=== PATIENT | female | born 1970 | race African-American/Black ===

== ENCOUNTER 2021-01-04 10:22 | Emergency (ER) | payer BC, SELFPAY ==
[2021-01-04] VITALS (17 sets, daily range): BP systolic 97–140; BP diastolic 59–79; PULSE 77–100; RESP 10–19; TEMP 36.1–36.8; O2SAT 98–100
--- NOTE | ~2021-01-04 | CT_ITS ---
EXAMINATION: CT abd pelvis lumbar wo con EXAM DATE: 01/04/2021 11:30 INDICATION: Right sided abd/pelvic/hip pain TECHNIQUE: Spiral CT of the abdomen and pelvis and lumbar spine was performed without contrast. Axi al, coronal and sagittal images of the abdomen and pelvis were reviewed. Axial, coronal and sagittal images of the lumbar spine were reviewed. The dose-length product (DLP) for this examination was 79 4.63 mGy-cm. The exposure was tailored according to patient size (auto mA exposure control), and ite rative reconstruction (ASIR) was used as additional dose reduction technique. There is no prior stud y for comparison. FINDINGS: The liver, spleen, adrenal glands and pancreas are unremarkable. Gallbladder is unremarkab le. No biliary obstruction. There is no nephrolithiasis or hydronephrosis. The uterus is not iden tified and has likely been surgically resected. The bladder is unremarkable. There is no retroperit claudio or pelvic lymphadenopathy. Probable identification of short stubby appendix, or its surgical remnant on images 107-110, does not appear obstructed. The stomach and small bowel are unremarkable. There is moderate amount of colon ic stool. No free intraperitoneal gas. The heart is normal in size. There are no pericardial or pleural effusions. The lung bases are unremarkable. There is no evidence of acute lumbar fracture. There is no disc space widening or traumatic vertebra l body subluxation suspected. Paraspinal soft tissue is unremarkable. There are mild lumbar disc bu lges, is mild to moderate lower lumbar facet arthropathy. Mild bilateral neural foraminal stenosis at L3-4 and L4-5. Central canal appears patent. No endplate erosive change. Bone island in the left aisha e of the sacrum. Hip joints are symmetric and unremarkable. IMPRESSION: 1. No acute findings. 2. Moderate colonic stool. 3. Mild lumbar spondylosis. Reviewed, dictated and finalized at location B.
[2021-01-04 10:53] LABS: Basophils Percent Auto 0.4 % (0.2-1.2); Eosinophils Absolute Auto 0.2 K/mm3 (0-0.3); Eosinophils Percent Auto 2.1 % (0-4.4); Hematocrit 41.2 % (37.0-47.0); Hemoglobin 12.9 g/dL (12.0-15.0); Immature Granulocyte Absolute 0.02 K/mm3 (0.00-0.031); Immature Granulocyte Percent A 0.3 % (0-0.5); Lymphocytes Absolute Auto 2.17 K/mm3 (0.9-3.2); Lymphocytes Percent Auto 30.6 % (18.3-44.2); Mean Corpuscular HGB Conc 31.3 g/dl (32-36); Mean Corpuscular Hemoglobin 27.4 pg (26-34); Mean Corpuscular Volume 87.5 fl (80-100); Mean Platelet Volume 9.9 fl (7.4-10.4); Monocytes Absolute Auto 0.5 K/mm3 (0.1-0.6); Monocytes Percent Auto 6.9 % (2.6-8.5); Neutrophils Absolute Auto 4.2 K/mm3 (1.3-6.7); Neutrophils Percent Auto 59.7 % (45.5-73.1); Platelet Count Result 231 k/mm3 (150-375); Red Blood Count 4.71 M/mm3 (4.2-5.4); Red Cell Distribution Width 14.7 % (11.5-14.5); White Blood Count 7.1 K/mm3 (4.5-10.0)
[2021-01-04 11:08] LABS: Alanine Aminotransferase 22 U/L (4-35); Albumin Level 4.7 g/dL (3.5-5.1); Alkaline Phosphatase 71 U/L (38-126); Anion Gap 10 mmol/L (8-16); Aspartate Amino Transferase 23 U/L (14-36); Bilirubin,Total 0.3 mg/dL (0.2-1.3); Blood Urea Nitrogen 14 mg/dL (7-17); Calcium 9.6 mg/dL (8.4-10.2); Carbon Dioxide 25 mmol/L (22-30); Chloride 106 mmol/L (98-107); Estimated CRCL calculation 76 ml/min; Estimated Glomerular Filt Rate > 60; Glucose 100 mg/dL (65-110); Lipase 293 U/L (23-300); Potassium 3.9 mmol/L (3.4-5.0); Sodium 141 mmol/L (137-145)
--- NOTE | 2021-01-04 11:10 | ED.ABDPAIN ---
HPI - Abdominal Pain General Chief Complaint: Abdominal Pain Stated Complaint: ? Kidney Stone Time Seen by Provider: 01/04/21 10:52 Source: patient Mode of arrival: ambulatory Limitations: no limitations History of Present Illness HPI narrative: This is a 50-year-old female that presents to the emergency department for right-sided abdominal/hip pain present over the last couple of days. No known injury or trauma. Pain is a constant dull ache. With movement is more sharp. She was concerned she may have a kidney stone which prompted her to be seen. Denies fever, vomiting, dysuria, hematuria, numbness or weakness. Related Data Allergies Allergy/AdvReac Type Severity Reaction Status Date / Time Penicillins Allergy Unknown Hives Verified 01/04/21 10:49 phenytoin Allergy Unknown Hives Verified 01/04/21 14:05 Sulfa (Sulfonamide Allergy Unknown HIVES Verified 01/04/21 10:49 Antibiotics) Review of Systems Review of Systems: CONSTITUTIONAL: Denies fever GASTROINTESTINAL: Reports abdominal pain, nausea. Denies vomiting, or diarrhea. GENITOURINARY: Denies dysuria or hematuria. SKIN: Denies rash MUSCULOSKELETAL: Reports joint pain, and myalgia. NEUROLOGIC: Denies numbness, or weakness. All systems reviewed & are unremarkable except as noted in HPI and below PMFSH Past Medical History Medical History (Updated 01/04/21 @ 14:51 by Renita Su PA-C) History of migraine Social History Social History (Updated 01/04/21 @ 11:12 by Renita Su PA-C) Substance use: never Exam Narrative: GENERAL: Well-appearing, well-nourished, and in no acute distress. HEAD: Normocephalic, atraumatic. EYES: EOMI. CHEST: Clear to auscultation. No respiratory distress. No wheezes rales or rhonchi HEART: Regular rate and rhythm. No murmur heard. Normal peripheral pulses. ABDOMEN: Soft, nondistended, normal active bowel sounds. Mild tenderness palpation of the right lower quadrant, without guarding. No CVA tenderness EXTREMITIES: Normal range of motion. Pain with active range of motion in the right hip. No edema. Strength equal in bilateral lower extremities (5/5) SKIN: Warm, dry, no rash. NEURO: No focal deficits. Alert and oriented x3. PSYCH: Normal mood and affect Course Vital Signs Vital signs: Vital Signs Temperature 97.0 F L 01/04/21 10:33 Pulse Rate 100 01/04/21 10:33 Respiratory Rate 16 01/04/21 10:33 Blood Pressure 140/67 01/04/21 10:33 Pulse Oximetry 99 01/04/21 10:33 Temperature 98.2 F 01/04/21 10:48 Pulse Rate 79 01/04/21 13:45 Respiratory Rate 13 01/04/21 13:45 Blood Pressure 105/68 01/04/21 13:45 Pulse Oximetry 100 01/04/21 13:45 MDM - Abdominal Pain MDM Narrative Medical decision making narrative: Patient presents to the emergency department for right-sided abdominal/hip pain radiating down the leg. Her vitals are stable. She is neurologically intact. CBC metabolic panel without concerning findings. Lipase is normal. UA without evidence of infection. CT scan abdomen pelvis is without acute findings. CT scan of the lumbar spine shows mild lumbar spondylosis. Patient was updated on case findings. She is stable and felt appropriate for further outpatient evaluation. She was given warnings to return to the ER Lab Data Attestation: I reviewed the patient's lab results. Result diagrams: 01/04/21 10:47 01/04/21 10:47 Labs: Lab Results 01/04/21 01/04/21 01/04/21 Range/Units 10:47 10:47 10:58 WBC 7.1 (4.5-10.0) K/mm3 RBC 4.71 (4.2-5.4) M/mm3 Hgb 12.9 (12.0-15.0) g/dL Hct 41.2 (37.0-47.0) % MCV 87.5 (80-100) fl MCH 27.4 (26-34) pg MCHC 31.3 L (32-36) g/dl RDW 14.7 H (11.5-14.5) % Plt Count 231 (150-375) k/mm3 MPV 9.9 (7.4-10.4) fl Immature Gran % (Auto) 0.3 (0-0.5) % Neut % (Auto) 59.7 (45.5-73.1) % Lymph % (Auto) 30.6 (18.3-44.2) % [place] % (Auto) 6.9 (2.6-8.5) %
[2021-01-04 11:23] LABS: Add Urine Microscopic? NO; Appearance Urine Clear (Clear); Bilirubin Urine Negative (Negative); Blood Urine Negative (Negative); Color Urine Colorless (Yellow); Glucose Urine UA Negative (Negative); Ketones Urine Negative (Negative); Leukocyte Esterase Ur Negative LEU/UL (Negative); Nitrate Urine Negative (Negative); Protein Urine Negative (Negative); Specific Grav Ur 1.005 (1.001-1.035); Urobilinogen Urine Negative mg/dL (<2.0)
[2021-01-04] MEDS: ONDANSETRON INJ 4 MG/2 ML VIAL IV PUSH (11:23)
[2021-01-04] MEDS: MORPHINE SULFATE (*CRX) 4 MG/ML INJ IV PUSH (11:23)
--- NOTE | 2021-01-04 13:55 | PC.NURSE ---
Continues to c/o pain in right upper abd, Yenifer Su PA-C notified and orders as noted.
[2021-01-04] MEDS: KETOROLAC 30 MG/ML VIAL (*BKC) IV PUSH (14:01)
== END 2021-01-04 15:15 | disposition home or self-care (01) ==
PROVIDERS: Emergency Provider Emergency Medicine
DX: M54.16 Radiculopathy, lumbar region (principal); Z86.69 Personal history of other diseases of the nervous system and sense organs
CPT/HCPCS: 36415; 72131; 74176; 80053; 81003; 83690; 85025; 96365; 96375; 99284; J0131; J1885; J2270; J2405

== ENCOUNTER 2021-01-19 15:49 | Inpatient (IN) | payer BC, SELFPAY ==
--- NOTE | ~2021-01-19 | XR_ITS ---
EXAMINATION: XR abdomen NG/feed tube rechec EXAM DATE: 01/24/2021 15:11 INDICATION: NG position, postop ileus. TECHNIQUE: Frontal projection(s) of the abdomen for interpretation. Comparison is made to prior exami nation from 01/24/2021. FINDINGS: Feeding tube tip and side-port project over expected location of stomach. There are laparo raisa ilir. There is left basilar airspace disease. Moderate amount of colonic stool and bowel gas. IMPRESSION: 1. Feeding tube in position. 2. Moderately distended bowel. 3. Left basilar atelectasis or pneumonia. Reviewed, dictated and finalized at location A.
--- NOTE | ~2021-01-19 | XR_ITS ---
XR abdomen/kub 1V DATE: 01/25/2021 05:40 INDICATION: NG tube position check. Postoperative ileus. TECHNIQUE: Portable supine AP view on 01/25/2021 at 0528 hours COMPARISON: 01/24/2021 portable KUB FINDINGS: An NG tube is present in the distal stomach. [place] overlie the right midabdomen. There is a prominent amount of fecal material in the ascending colon and gaseous distention of multip le segments of the small and large bowel. IMPRESSION: NG tube in distal stomach Reviewed, dictated and finalized at Location A. Reviewed, dictated and finalized at location A. IMPRESSION: NG tube in distal stomach
--- NOTE | ~2021-01-19 | XR_ITS ---
EXAMINATION: XR abdomen NG/feed tube insert INDICATION: Nasogastric tube insertion TECHNIQUE: Portable AP KUB-NG at 1923 hours COMPARISON: CT from today FINDINGS: A nasogastric tube has been inserted which ends in the stomach. No dilated small bowel loop s are not well demonstrated. IMPRESSION: 1. Nasogastric tube in the stomach. Reviewed, dictated and finalized at location A.
--- NOTE | ~2021-01-19 | XR_ITS ---
EXAMINATION: XR abdomen/kub 1V DATE: 01/21/2021 05:55 INDICATION: Small bowel obstruction TECHNIQUE: A supine view of the abdomen was obtained. COMPARISON: 01/19/2021 FINDINGS: Nasogastric tube tip in proximal side port in the body of the stomach. Large amount of stool in the p roximal colon. Small amount of gas scattered throughout a few nondilated loops of small bowel. A coup le phleboliths in the left hemipelvis. Chronic appearing erosions with corticated margins at both aisha es of the pubic symphysis IMPRESSION: 1. Nasogastric tube in the stomach. 2. Large amount of stool in the proximal colon. No dilated loops of bowel to suggest obstruction. Reviewed, dictated and finalized at location A. IMPRESSION: 1. Nasogastric tube in the stomach. 2. Large amount of stool in the proximal colon. No dilated loops of bowel to castanon ggest obstruction.
--- NOTE | ~2021-01-19 | XR_ITS ---
EXAMINATION: XR chest PICC line EXAM DATE: 01/24/2021 20:29 INDICATION: Right arm PICC line placement. TECHNIQUE: Portable AP frontal chest x-ray was obtained. Comparison is made to prior examination from 01/23/2021. FINDINGS: There is a right-sided PICC line with tip projecting over the cavoatrial junction. There i s a nasogastric tube seen with tip collimated off the study, but below the left hemidiaphragm. Ther e is patchy bibasilar airspace disease consistent with pneumonia and atelectasis. Small left pleural effusion. No pneumothorax. Cardiomediastinal silhouette is normal. There are no osseous abnormalities identified. IMPRESSION: 1. PICC line, NG tube in position. 2. Multifocal bibasilar pneumonia and atelectasis Reviewed, dictated and finalized at location A.
--- NOTE | ~2021-01-19 | CT_ITS ---
EXAMINATION: CT abdomen pelvis w con EXAM DATE: 01/19/2021 17:12 INDICATION: Right-sided abdominal pain. TECHNIQUE: Spiral CT of the abdomen and pelvis was performed following intravenous injection of 100 m L Omnipaque 350. Axial, coronal and sagittal images of the abdomen and pelvis were reviewed. The do se-length product (DLP) for this examination was 645.53 mGy-cm. The exposure was tailored according to patient size (auto mA exposure control), and iterative reconstruction (ASIR) was used as additiona l dose reduction technique. Comparison is made to prior examination from 01/04/2021. FINDINGS: The liver, spleen, adrenal glands and pancreas are unremarkable. Gallbladder is unremarka ble. No biliary obstruction. Portal and splenic veins are patent. Kidneys enhance symmetrically. There is no hydronephrosis. The uterus is not identified and has likely been surgically resected. The bladder is unremarkable. There is no retroperitoneal or pelvic lymphadenopathy. Minimal aortic arteriosclerosis. Interval development of mildly dilated ileal loop, and mildly dilated loops of jejunum with undistend ed appearing mid small bowel between them. A portion of the transverse colon appears to be tented tow barber the left lower quadrant region of inflammation, indicated on axial image 105, coronal images 53 t hrough 57. There has been interval development of small amount of left lower quadrant mesenteric, ind icated on axial images 128 through 133. These findings, including the transverse colonic tenting have developed compared to previous examination. Could indicate development of some type of internal irina ia with partial obstruction, could indicate partial small bowel obstruction from other etiology. Ente ritis could explain the small bowel findings. No high-grade or complete obstruction is suspected at t his time. Interval development of mildly dilated segments of small bowel up to 3 cm, There are no findings to s uggest appendicitis. No free intraperitoneal gas. The heart is normal in size. There are no gabrielle cardial or pleural effusions. The lung bases are unremarkable. Bone island in the left side of the sacrum. IMPRESSION: Interval development of mildly dilated jejunum and ileum with normal calibered mid small bowel, and development of some mesenteric tenting and inflammation. Differential diagnosis includes i nternal hernia with partial small bowel obstruction, partial small bowel obstruction from adhesion, e nteritis. Reviewed, dictated and finalized at location A. IMPRESSION: Interval development of mildly dilated jejunum and ileum with josé luis l calibered mid small bowel, and development of some mesenteric tenting and inf lammation. Differential diagnosis includes internal hernia with partial small b owel obstruction, partial small bowel obstruction from adhesion, enteritis.
--- NOTE | ~2021-01-19 | US_ITS ---
US right upper quadrant DATE: 01/29/2021 09:55 INDICATION: Elevated liver enzymes TECHNIQUE: Real-time imaging of liver, pancreas, gallbladder COMPARISON: 01/19/2021 CT abdomen pelvis FINDINGS: No hepatic space-occupying mass lesion is evident. Normal hepatopedal portal venous flow di rection. No gallstones or gallbladder wall thickening are evident. Negative sonographic Li's sign. The common bile duct measures 4.8 mm, normal. No pancreatic mass lesion is evident. IMPRESSION: Negative examination Reviewed, dictated and finalized at Location A. Reviewed, dictated and finalized at location A. IMPRESSION: Negative examination
--- NOTE | ~2021-01-19 | XR_ITS ---
EXAMINATION: XR abdomen/kub 1V DATE: 01/24/2021 14:27 INDICATION: Nasogastric tube placement. TECHNIQUE: A supine view of the abdomen on 2 radiographs was obtained. COMPARISON: CT abdomen and pelvis 01/19/2021 FINDINGS: There are multiple dilated loops of small bowel. There is stool in the proximal colon. The nasogastric tube tip is in the stomach. Skin ilir are noted. IMPRESSION: 1. Dilated small bowel, consistent with adynamic ileus. 2. Nasogastric tube tip in the stomach. Reviewed, dictated and finalized at location A.
--- NOTE | ~2021-01-19 | XR_ITS ---
XR chest 2V 01/23/2021 11:27 Indication: Fever and dyspnea Procedure: PA and lateral views of the chest Comparison: No prior studies for comparison. Findings: Bibasilar airspace disease. Small left pleural effusion. NG tube in the stomach. Heart size normal. No edema or pneumothorax. Impression: 1: Bibasilar airspace disease may represent pneumonia and/or atelectasis. Reviewed, dictated and finalized at location A. Impression: 1: Bibasilar airspace disease may represent pneumonia and/or atelectasis.
--- NOTE | ~2021-01-19 | XR_ITS ---
EXAMINATION: XR sm bowel follow through WS EXAM DATE: 01/21/2021 16:01 INDICATION: f/u sbo--water soluble contrast only. TECHNIQUE: [employer] Service Supervisor radiograph was acquired. Omnipaque/water soluble solution administered for small payam wel exam performed by radiologist Alexandro Lowe M.D.. Contrast was injected through feeding tube in amarilys ce on patient arrival. Pulsed dose reduction fluoroscopy was used with fluoroscopic time of 0.0 minut es. A total of 8 images obtained for the exam. FINDINGS: Cool[employer] Service Supervisor image demonstrates feeding tube in position. Images obtained during [address] some opacification of moderately dilated jejunal loops, but most of contrast remaining within sto mach. Patient also became nauseated, vomiting during the examination. IMPRESSION: Small bowel obstruction. Reviewed, dictated and finalized at location A. IMPRESSION: Small bowel obstruction.
--- NOTE | ~2021-01-19 | XR_ITS ---
XR sm bowel follow through WS DATE: 01/27/2021 13:02 INDICATION: Recent surgery for small bowel obstruction TECHNIQUE: Liner Installer radiograph and subsequent radiographs after administration of water-soluble contrast material through the existing nasogastric tube COMPARISON: 01/25/2021 KUB 01/21/2021 small bowel follow-through FINDINGS: A nasogastric tube is present in the distal body of the stomach on the lotus notes administrator radiograph. Sk in ilir overlie the mid to lower abdomen. There is a prominent amount of fecal material in the colon. There is normal caliber of the small bowel. The mucosal folds of the small bowel are of normal thickn ess. No stricture, mucosal fold thickening, intraluminal filling defect or obstruction of the small b owel is noted. Contrast material is noted are the hepatic flexure and proximal transverse colon at 3 hours. IMPRESSION: No evidence of small bowel obstruction Reviewed, dictated and finalized at [facility] Reviewed, dictated and finalized at [facility].
[2021-01-19 15:52] VITALS: BP 131/76; PULSE 92; RESP 17; TEMP 36.2; O2SAT 100
--- NOTE | 2021-01-19 16:15 | PC.NURSE ---
pt unable to provide ua specimen at this time
[2021-01-19 16:24] LABS: Basophils Percent Auto 0.2 % (0.2-1.2); Eosinophils Absolute Auto 0.1 K/mm3 (0-0.3); Eosinophils Percent Auto 0.5 % (0-4.4); Hematocrit 41.5 % (37.0-47.0); Hemoglobin 13.2 g/dL (12.0-15.0); Immature Granulocyte Absolute 0.04 K/mm3 (0.00-0.031); Immature Granulocyte Percent A 0.4 % (0-0.5); Lymphocytes Absolute Auto 0.95 K/mm3 (0.9-3.2); Mean Corpuscular HGB Conc 31.8 g/dl (32-36); Mean Corpuscular Hemoglobin 27.6 pg (26-34); Mean Corpuscular Volume 86.8 fl (80-100); Monocytes Absolute Auto 0.3 K/mm3 (0.1-0.6); Monocytes Percent Auto 3.6 % (2.6-8.5); Neutrophils Absolute Auto 8.1 K/mm3 (1.3-6.7); Neutrophils Percent Auto 85.3 % (45.5-73.1); Platelet Count Result 256 k/mm3 (150-375); Red Blood Count 4.78 M/mm3 (4.2-5.4); Red Cell Distribution Width 13.4 % (11.5-14.5); White Blood Count 9.5 K/mm3 (4.5-10.0)
[2021-01-19 16:43] LABS: Alanine Aminotransferase 20 U/L (4-35); Albumin Level 5.2 g/dL (3.5-5.1); Alkaline Phosphatase 91 U/L (38-126); Anion Gap 13 mmol/L (8-16); Aspartate Amino Transferase 29 U/L (14-36); Bilirubin,Total 0.4 mg/dL (0.2-1.3); Blood Urea Nitrogen 13 mg/dL (7-17); Calcium 10.1 mg/dL (8.4-10.2); Carbon Dioxide 27 mmol/L (22-30); Chloride 102 mmol/L (98-107); Estimated CRCL calculation 84 ml/min; Estimated Glomerular Filt Rate > 60; Glucose 108 mg/dL (65-110); Lipase 88 U/L (23-300); Potassium 3.4 mmol/L (3.4-5.0); Sodium 142 mmol/L (137-145)
[2021-01-19] MEDS: SODIUM CHLORIDE 0.9% IV 1,000 ML 999 ML IV CONT ×2 (16:51→18:35)
[2021-01-19 17:52] LABS: Add Urine Microscopic? YES; Amorphous Sediment Urine Moderate; Appearance Urine Cloudy (Clear); Bilirubin Urine Negative (Negative); Blood Urine Negative (Negative); Color Urine Yellow (Yellow); Glucose Urine UA Negative (Negative); Ketones Urine Trace mg/dL (Negative); Leukocyte Esterase Ur Negative LEU/UL (Negative); Mucus Urine Rare /lpf; Nitrate Urine Negative (Negative); Protein Urine 2+ mg/dL (Negative); Squamous Epithelial Cell Urine Occasional /hpf (Few); Urobilinogen Urine Negative mg/dL (<2.0); WBC Urine 0-3 /hpf
[2021-01-19 18:09] LABS: Specific Grav Ur 1.041 (1.001-1.035)
--- NOTE | 2021-01-19 18:11 | ED.ABDPAIN ---
HPI - Abdominal Pain General Chief Complaint: Abdominal Pain Stated Complaint: ABD PAIN, VOMITING Time Seen by Provider: 01/19/21 16:26 Source: patient and RN notes reviewed Mode of arrival: ambulatory Limitations: no limitations History of Present Illness HPI narrative: Patient is 51 years old -F[place] female presents to the ED with upper abdominal pain started 2 weeks ago, intermittent, denies aggravating or relieving factors associated with nausea and intermittent vomiting. History of appendectomy and complete hysterectomy secondary to dysfunctional uterine bleeding. Patient is fully vaccinated for COVID-19. Patient had history of migraine headache, does not smoke or drink or uses drugs. Related Data Allergies Allergy/AdvReac Type Severity Reaction Status Date / Time Penicillins Allergy Unknown Hives Verified 01/19/21 16:16 phenytoin Allergy Unknown Hives Verified 01/19/21 16:16 Sulfa (Sulfonamide Allergy Unknown HIVES Verified 01/19/21 16:16 Antibiotics) Review of Systems Review of Systems: CONSTITUTIONAL: Denies fever, chills, or sweats. EYES: Denies visual changes, redness, or discharge. ENT: Denies rhinorrhea, congestion, sore throat, or otalgia. CARDIOVASCULAR: Denies chest pain, palpitations, or edema. RESPIRATORY: Denies cough or dyspnea. GASTROINTESTINAL: Denies abdominal pain, nausea, vomiting, or diarrhea. GENITOURINARY: Denies dysuria or hematuria. SKIN: Denies rash or itching. MUSCULOSKELETAL: Denies back pain, joint pain, or myalgia. NEUROLOGIC: Denies headache, numbness, or weakness. PSYCHIATRIC: Denies anxiety or depression. PMFSH Past Medical History Medical History History of migraine Social History Social History Substance use: never Exam Narrative: General appearance: Well-developed, well-nourished Skin: Normal color Head: Normocephalic, nontraumatic Eyes: Clear conjunctiva ENT: Oropharynx normal, ears normal, nose normal Neck: Supple, nontender Chest and respiratory: Airway patent, no respiratory distress, no accessory muscle use Heart: Regular rate/rhythm Abdomen: Soft, severe diffuse upper abdominal tenderness, severe rebound, quiet bowel sounds Vascular: Normal peripheral pulses, normal capillary refill. Musculoskeletal: Normal range of motion, nontender back Neurologic: Alert and oriented ?3, TERRAZZO ROLLER is normal as tested, no gross motor deficit Course Course Emergency Course: Stable Vital Signs Vital signs: Vital Signs Temperature 36.2 C L 01/19/21 15:52 Pulse Rate 92 01/19/21 15:52 Respiratory Rate 17 01/19/21 15:52 Blood Pressure 131/76 01/19/21 15:52 Pulse Oximetry 100 01/19/21 15:52 Temperature 36.2 C L 01/19/21 15:52 Pulse Rate 92 01/19/21 15:52 Respiratory Rate 17 01/19/21 15:52 Blood Pressure 131/76 01/19/21 15:52 Pulse Oximetry 100 01/19/21 15:52 MDM - Abdominal Pain MDM Narrative Medical decision making narrative: Patient presents with intermittent abdominal pain for last 2 weeks. History of appendectomy, complete hysterectomy. Partial small bowel obstruction, small bowel obstruction secondary to stricture is my concern. Labs, CT abdomen pelvis with IV contrast, IV fluid, IV Dilaudid and Zofran ordered. Differential Diagnosis Differential diagnosis: Likely abdominal pain, constipation, diverticulitis, pancreatitis and small bowel obstruction Lab Data Result diagrams: 01/19/21 16:13 01/19/21 16:13 Labs: Lab Results 01/19/21 01/19/21 01/19/21 Range/Units 16:13 16:13 17:21 WBC 9.5 (4.5-10.0) K/mm3 RBC 4.
[2021-01-19] MEDS: HYDROmorphone HCL INJ (*CRX) 1 MG/ML SYR 0.5 MG IV PUSH ×2 (18:28→23:56)
[2021-01-19] MEDS: ONDANSETRON INJ 4 MG/2 ML VIAL IV PUSH ×2 (18:28→23:59)
[2021-01-19 19:25] VITALS: BP 126/65; PULSE 94; RESP 18; O2SAT 99
--- NOTE | 2021-01-19 19:48 | PM.IMHP ---
H&P: HPI History of Present Illness Date/Time: 01/19/21 19:48 Chief Complaint: Abdominal pain Narrative: This is a 51-year-old female with past medical history significant for migraine headaches, status post hysterectomy. Patient presented to the emergency room due to abdominal pain which has been ongoing now for 2 weeks she had been to the emergency room roughly about a week ago a CT of abdomen and pelvis did not show any acute abnormalities and she was sent home however she continued to have progressively worsening abdominal pain with constipation ,obstipation, not able to eat having nausea and vomiting, no fevers ,no rigors, no chills, no hematemesis, no melena ,no bright red blood per rectum, no coffee-ground emesis. Preliminary workup was significant for CT of abdomen and pelvis which shows partial small-bowel obstruction. Patient has been admitted for further management treatment and evaluation. Review of Systems Review of Systems: Abdominal pain obstipation constipation nausea and vomiting Constitutional: Constitutional: Denies fever(s), Denies lethargy, Denies malaise and Reports poor appetite Eyes: Eyes: Denies change in vision ENT: Denies dysphagia, Denies nasal congestion, Denies nasal discharge, Denies nasal obstruction and Denies odynophagia Cardiovascular: Cardiovascular: Denies chest pain at rest, Denies chest pain with activity, Denies edema, Denies irregular heart rhythm, Denies lightheadedness, Denies radiating jaw, neck or arm pain, Denies palpitations, Denies dyspnea on exertion, Denies orthopnea and Denies paroxysmal nocturnal dyspnea Respiratory: Respiratory: Denies cough Gastrointestinal: Gastrointestinal: Reports abdominal pain, Reports belching, Reports constipation, Reports nausea and Reports vomiting Genitourinary: Genitourinary: Reports no additional female genitourinary complaints Musculoskeletal: Musculoskeletal: Reports no additional musculoskeletal complaints Integumentary/Breasts: Skin/Breast: Reports system reviewed and no additional complaints, except as docu Neurologic: Reports system reviewed and no additional complaints, except as documented Psychiatric: Psychiatric: Reports no additional psychiatric complaints Hematologic/Lymphatic: Hematologic/Lymphatic: Reports no additional hematologic/lymphatic complaints Allergic/Immunologic: Allergic/Immunologic: Reports no additional allergic/immunologic complaints PMFSH Past Medical History Medical History History of migraine Social History Social History Smoking status: Never smoker Second hand tobacco smoke exposure: No Alcohol intake: never Drinks per week: 0 Substance use: never Substance use type: does not use Spiritual care concerns: No Meds Home Medications and Allergies Home Medications Medication Instructions Recorded Confirmed Type nortriptyline 75 mg PO HS 01/19/21 01/19/21 History rimegepant [Nurtec ODT] 75 mg PO DAILY PRN 01/19/21 01/19/21 History sumatriptan succinate 6 mg SUBCUT ONCE PRN MDD 2/DAY 4/WK 01/19/21 01/19/21 History topiramate 100 mg PO QPM 01/19/21 01/19/21 History topiramate 150 mg PO QAM 01/19/21 01/19/21 History Allergies Allergy/AdvReac Type Severity Reaction Status Date / Time Penicillins Allergy Unknown Hives Verified 01/19/21 16:16 phenytoin Allergy Unknown Hives Verified 01/19/21 16:16 Sulfa (Sulfonamide Allergy Unknown HIVES Verified 01/19/21 16:16 Antibiotics) Vital Signs Vital Signs - 24 hr 01/19/21 15:52 01/19/21 19:25 Temperature 97.2 F L Pulse Rate 92 94 Respiratory Rate 17 18 Blood Pressure 131/76 126/65 Pulse Oximetry 100 99 Exam Narrative: Patient is laying in gurney Const: General: cooperative, comfortable, no acute distress, well developed, alert, awake, well groomed and other (Well-appearing) Nutritional Appearance: average body habitus
[2021-01-19 20:56] VITALS: BP 124/65; PULSE 89; RESP 16; O2SAT 98
--- NOTE | 2021-01-19 21:19 | PC.NURSE ---
Attempted to call report, RN in pt room, RN will call back.
--- NOTE | 2021-01-19 22:15 | ADMGEN ---
This patient, Nani Jeter, was admitted to [facility] Surg Room 317-01. Patient/family oriented to hospital policies and general routines including ID bracelet, bed and alarms, visiting hours, pain management, procedures, bathroom and other care routines, personal items, smoking policy, room service/diet, and visiting hours. Information on how to activate the Rapid Response Team has been discussed. Patient/Family are encouraged to report perceived risks to care and to ask questions if they do not understand what they are told or what they should do.
[2021-01-19 22:20] VITALS: BP 133/70; PULSE 96; RESP 16; TEMP 35.5; O2SAT 100
[2021-01-19 22:30] VITALS: O2SAT 100
[2021-01-19 22:35] VITALS: BMI 33.9
[2021-01-20] MEDS: HYDROmorphone HCL INJ (*CRX) 1 MG/ML SYR 0.5 MG IV PUSH ×4 (03:52→20:02)
[2021-01-20] MEDS: ONDANSETRON INJ 4 MG/2 ML VIAL IV PUSH ×4 (03:53→20:01)
[2021-01-20 06:00] VITALS: BP 128/70; PULSE 85; RESP 16; TEMP 36.1; O2SAT 97
[2021-01-20] MEDS: SODIUM CHLORIDE 0.9% IV 1,000 ML 150 ML IV CONT ×2 (07:57→14:25)
[2021-01-20 10:12] LABS: Basophils Percent Auto 0.3 % (0.2-1.2); Eosinophils Percent Auto 0.4 % (0-4.4); Hematocrit 38.1 % (37.0-47.0); Hemoglobin 11.5 g/dL (12.0-15.0); Immature Granulocyte Absolute 0.02 K/mm3 (0.00-0.031); Immature Granulocyte Percent A 0.3 % (0-0.5); Lymphocytes Absolute Auto 1.31 K/mm3 (0.9-3.2); Lymphocytes Percent Auto 16.6 % (18.3-44.2); Mean Corpuscular HGB Conc 30.2 g/dl (32-36); Mean Corpuscular Volume 89.4 fl (80-100); Mean Platelet Volume 10.4 fl (7.4-10.4); Monocytes Absolute Auto 0.4 K/mm3 (0.1-0.6); Monocytes Percent Auto 5.4 % (2.6-8.5); Neutrophils Absolute Auto 6.1 K/mm3 (1.3-6.7); Platelet Count Result 214 k/mm3 (150-375); Red Blood Count 4.26 M/mm3 (4.2-5.4); White Blood Count 7.9 K/mm3 (4.5-10.0)
[2021-01-20 10:21] LABS: Potassium 3.7 mmol/L (3.4-5.0)
[2021-01-20 10:23] LABS: Alanine Aminotransferase 15 U/L (4-35); Albumin Level 4.2 g/dL (3.5-5.1); Alkaline Phosphatase 70 U/L (38-126); Anion Gap 9 mmol/L (8-16); Aspartate Amino Transferase 24 U/L (14-36); Bilirubin,Total 0.2 mg/dL (0.2-1.3); Blood Urea Nitrogen 11 mg/dL (7-17); Calcium 9.1 mg/dL (8.4-10.2); Carbon Dioxide 23 mmol/L (22-30); Chloride 108 mmol/L (98-107); Estimated CRCL calculation 95 ml/min; Estimated Glomerular Filt Rate > 60; Glucose 101 mg/dL (65-110); Potassium 3.8 mmol/L (3.4-5.0); Sodium 140 mmol/L (137-145)
--- NOTE | 2021-01-20 10:54 | PM.CNGS ---
Assessment and Plan Assessment and plan (1) Partial small bowel obstruction: Code(s): K56.600 - Partial intestinal obstruction, unspecified as to cause Status: Acute Assessment and Plan: CT scan reviewed and suggesting a partial small bowel obstruction that could be related to an internal hernia, adhesions, or enteritis. This was discussed in detail with the patient. No signs of ischemia at this time. We will initially treat this with conservative measures, including NG tube decompression, bowel rest, IV fluids, and analgesics. Will follow her with serial abdominal exams and imaging. I discussed the plan with the patient and that ultimately if this does not improve with conservative treatment, then she may require surgical exploration. Thank you for allowing us to see the patient in consultation and we will continue to follow along with you. (2) Migraine: Code(s): G43.909 - Migraine, unspecified, not intractable, without status migrainosus Status: Acute Additional Plan I have discussed the patient's case and plan of care with Dr. Reed. History of Present Illness Consult details Consult date: 01/20/21 Reason for consult: other (Possible small bowel obstruction) Requesting physician: Kaity Jacinto MD Narrative: This is a 51-year-old female who presented to the emergency department last night with complaints of generalized abdominal pain and vomiting. She reports over the past few weeks she has been dealing with some mild generalized abdominal pain. This actually prompted her to go to the ED on 01/04/2021 and she was evaluated for abdominal pain at that time. CT scan of the abdomen and pelvis at that time showed no acute intra-abdominal findings, moderate amount of colonic stool. Labs were unremarkable and urinalysis was negative for infection. She was given Flexeril and discharged home. She followed up with her primary care provider, who recommended her to be evaluated by her fuel assembler. She made an appointment with them, but this was not until February. The pain continued after being seen in the ER and did not seem to be improving. For the past week, she has kept herself on primarily a liquid diet. She reports some intermittent nausea at that time, but no vomiting. No fever or chills. No other close contacts with similar symptoms. Yesterday, her abdominal pain became much more severe and she developed vomiting. She also had associated bloating. This prompted her to go to the ER for further evaluation. CT scan of the abdomen and pelvis showed interval development of mildly dilated jejunum and ileum with normal caliber to mid small bowel, with development of some mesenteric tenting and inflammation. Labs were unremarkable. She was admitted to the hospitalist service. Our service has been consulted for the CT findings of a possible small bowel obstruction. The patient is now seen on the medical floor. She has an NG tube in place and x-ray confirming adequate placement. She reports her abdominal pain and bloating has improved slightly, but she is still having increased pain as her pain medication wears off. She denies any flatus and her last BM was a small soft BM yesterday. She holds a history of migraines and has home medications for this. Her history of abdominal surgery is a laparoscopic appendectomy and what sounds like a laparoscopic-assisted vaginal hysterectomy. Denies any history of previous small bowel obstructions. No other complaints at this time. Review of Systems Review of Systems: All systems reviewed & are unremarkable except as noted in HPI and below Constitutional: Constitutional: Reports as per HPI, Denies chills, Denies fatigue and Denies fever(s) ENT: Reports Normal hearing present Cardiovascular: Cardiovascular: Reports no additional cardiovascular complaints, Denies chest pain and Denies leg edema Respiratory: Respiratory: Reports no additional respiratory complaints, Denies c
[2021-01-20] MEDS: HYDROmorphone HCL INJ (*CRX) 1 MG/ML SYR IV PUSH ×2 (11:16→22:46)
[2021-01-20] MEDS: ENOXAPARIN 40 MG/0.4 ML SYRINGE SUB-Q (11:17)
--- NOTE | 2021-01-20 13:14 | PM.IMPN ---
Progress Note: A&P Assessment and Plan (1) Partial small bowel obstruction: Code(s): K56.600 - Partial intestinal obstruction, unspecified as to cause Status: Acute Assessment and Plan: Patient is a 51-year-old woman with a history of migraines, who presented to the emergency room with continued abdominal pain for 2 weeks which has become gradually worse and with associated vomiting prior to arrival. Patient came to the emergency room on 01/04/2021 for similar abdominal pain and her vitals, CBC, CMP, urine, CT scan were all normal. She was discharged home to follow-up with her PCP and her PCP told her to go to her GI specialist who she could not get an appointment with until February 2021. At home she was on a liquid diet of mostly Ensure due to abdominal symptoms. She continued to have constant pain every day which became gradually worse. Her last bowel movement was 01/19/2021 morning which she stated was ?normal?. Then she had worsening symptoms in vomiting which brought her to the emergency room. Initial vitals showed stable blood pressure 131/76, heart rate 92, afebrile, normal oxygenation on room air. Initial labs showed normal CBC, normal CMP other than elevated total protein and albumin, urinalysis showing cloudy urine with 2+ protein and amorphous sediment. CT abdomen showed Interval development of mildly dilated jejunum and ileum with normal calibered mid small bowel, and development of some mesenteric tenting and inflammation. She was admitted into the hospital for partial small-bowel obstruction with a consult to surgery, NPO and IV fluids. NG tube in place to suction, with green bilious material in tubing Surgery consulted and will continue with conservative management at this time, pain control, NG tube, antiemetics Do not believe the patient has any type of an infection within normal white blood cell count and decreasing neutrophil count since arrival and not received any antibiotics. Continue monitoring daily. (2) Abdominal pain: Qualifiers: Abdominal location: upper abdomen, unspecified Qualified Code(s): R10.10 - Upper abdominal pain, unspecified Code(s): R10.9 - Unspecified abdominal pain Status: Acute Assessment and Plan: Supportive care Pain control Likely secondary to a small-bowel obstruction (3) Enteritis: Code(s): K52.9 - Noninfective gastroenteritis and colitis, unspecified Status: Acute Assessment and Plan: Clinically no signs of infection Continue to monitor Consider antibiotics if changes (4) Migraine: Code(s): G43.909 - Migraine, unspecified, not intractable, without status migrainosus Status: Acute Assessment and Plan: Holding p.o. meds P.r.n. Triptans Time Spent With Patient Time with patient: 25 - 35 minutes Subjective Date/time seen: 01/20/21 13:14 Interval history: Date of service 01/20/2021: Patient reports feeling slightly better since coming into the hospital in getting an NG tube, antiemetics and pain meds. She denies any chest pain, shortness of breath, cough, leg swelling, calf pain, or any other symptoms at this time. Review of Systems Review of Systems: All systems reviewed & are unremarkable except as noted in HPI and below Exam Narrative: General: 51-year-old woman who appears uncomfortable sitting up in bed with NG Tube in place. In no acute distress. Skin: No jaundice or cyanosis. Good skin turgor. Neck: Full range of motion. Supple. Respiratory: Lungs are clear to auscultation bilaterally. No bony chest wall tenderness. Cardiovascular: The heart has a regular rate and rhythm without murmur. Lower extremities: No lower extremity edema. Distal pulses are easily palpated. No calf tenderness to
[2021-01-20 14:00] VITALS: BP 128/63; PULSE 80; RESP 18; TEMP 35.9; O2SAT 97
[2021-01-20 20:00] VITALS: O2SAT 98
[2021-01-20] MEDS: SODIUM CHLORIDE 0.9% IV 1,000 ML 100 ML IV CONT (21:37)
[2021-01-20 21:48] VITALS: BP 131/59; PULSE 88; RESP 18; TEMP 37.2; O2SAT 98
[2021-01-21] VITALS (13 sets, daily range): BP systolic 117–151; BP diastolic 59–80; PULSE 68–105; RESP 10–20; TEMP 36.2–37.7; O2SAT 93–100
[2021-01-21] MEDS: HYDROmorphone HCL INJ (*CRX) 1 MG/ML SYR IV PUSH ×3 (02:19→13:10)
[2021-01-21] MEDS: ONDANSETRON INJ 4 MG/2 ML VIAL IV PUSH ×3 (04:30→14:36)
[2021-01-21] MEDS: SUMAtriptan SUCCINATE 6 MG/0.5 ML VIAL SUB-Q (05:59)
[2021-01-21 06:43] LABS: Basophils Percent Auto 0.1 % (0.2-1.2); Eosinophils Absolute Auto 0.1 K/mm3 (0-0.3); Eosinophils Percent Auto 0.8 % (0-4.4); Hematocrit 35.1 % (37.0-47.0); Hemoglobin 10.9 g/dL (12.0-15.0); Immature Granulocyte Absolute 0.04 K/mm3 (0.00-0.031); Immature Granulocyte Percent A 0.5 % (0-0.5); Lymphocytes Absolute Auto 1.35 K/mm3 (0.9-3.2); Mean Corpuscular HGB Conc 31.1 g/dl (32-36); Mean Corpuscular Hemoglobin 27.1 pg (26-34); Mean Corpuscular Volume 87.3 fl (80-100); Mean Platelet Volume 9.8 fl (7.4-10.4); Monocytes Absolute Auto 0.4 K/mm3 (0.1-0.6); Monocytes Percent Auto 5.9 % (2.6-8.5); Neutrophils Absolute Auto 5.6 K/mm3 (1.3-6.7); Neutrophils Percent Auto 74.7 % (45.5-73.1); Platelet Count Result 217 k/mm3 (150-375); Red Blood Count 4.02 M/mm3 (4.2-5.4); Red Cell Distribution Width 13.7 % (11.5-14.5); White Blood Count 7.5 K/mm3 (4.5-10.0)
[2021-01-21] MEDS: SODIUM CHLORIDE 0.9% IV 1,000 ML 100 ML IV CONT (08:00)
[2021-01-21] MEDS: ENOXAPARIN 40 MG/0.4 ML SYRINGE SUB-Q (09:16)
[2021-01-21] MEDS: HYDROmorphone HCL INJ (*CRX) 1 MG/ML SYR 0.5 MG IV PUSH (09:19)
--- NOTE | 2021-01-21 11:53 | PM.PNGS ---
Progress Note: A&P Assessment and Plan (1) Partial small bowel obstruction: Code(s): K56.600 - Partial intestinal obstruction, unspecified as to cause Status: Acute Assessment and Plan: Looks better on plain films and white blood cell count still normal. Will get Gastrografin small bowel series today. If passes through with normal transit, DC NG and try liquids. If not, would continue NG but may well need laparotomy. (2) Migraine: Code(s): G43.909 - Migraine, unspecified, not intractable, without status migrainosus Status: Acute Assessment and Plan: will restart her medications for migraine headache. Can give with sip of water and clamp NG for 30-45 minutes. Subjective Subjective Date/Time Seen: 01/21/21 11:53 Patient reports: no new complaints, pain is less, no flatus, no bowel movement and afebrile Review of Systems Review of Systems: All systems reviewed & are unremarkable except as noted in HPI and below Constitutional: Constitutional: Reports as per HPI, Denies body ache(s), Denies chills, Denies fever(s) and Denies headache(s) Cardiovascular: Cardiovascular: Denies chest pain and Denies dyspnea Respiratory: Respiratory: Denies cough and Denies dyspnea Gastrointestinal: Gastrointestinal: Reports as per HPI, Reports constipation, Denies heartburn, Denies nausea and Denies vomiting Neurologic: Denies confusion and Denies headache(s) Exam Const: General: comfortable and no acute distress; No confusion Orientation/consciousness: patient oriented x3 and No confusion GI: Inspection: distended GI Palp: Yes Soft to palpation, Yes Tenderness to palpation present (GI) ( Mild upper abdominal tenderness), No Guarding due to palpation present (GI) and No Rebound tenderness present Auscultation: Hypoactive bowel sounds present Neuro: General: patient oriented x3, no focal motor deficits and No confusion Extrem: General: no calf tenderness and no edema Psych: Affect: normal affect Insight: Good insight present (Psych) Judgement: Good judgement present (Psych) Objective Data Vital Signs Vital Signs: Vital Signs - 24 hr 01/20/21 14:00 01/20/21 20:00 01/20/21 21:48 Temperature 35.9 C L 37.2 C Pulse Rate 80 88 Respiratory Rate 18 18 Blood Pressure 128/63 131/59 L Pulse Oximetry 97 98 98 01/21/21 06:00 01/21/21 08:00 Temperature 36.7 C Pulse Rate 68 68 Respiratory Rate 18 18 Blood Pressure 117/59 L Pulse Oximetry 93 93 Intake/Output Intake/Output: Intake & Output 01/18/21 01/19/21 01/20/21 01/21/21 23:59 23:59 23:59 23:59 Intake Total 2100 2000 1060 Output Total 950 650 Balance 2100 1050 410 Meds/Results Medications: Active Medications Generic Name Dose Route Start Last Admin Trade Name Freq PRN Reason Stop Dose Admin Enoxaparin Sodium 40 mg 01/20/21 09:00 01/21/21 09:16 Enoxaparin 40 Mg/0.4 Ml Syringe SUB-Q 40 mg DAILY RUBEN Administration Hydromorphone HCl 0.5 mg 01/20/21 11:22 01/21/21 09:19 Hydromorphone Hcl Inj (*Crx) 1 Mg/Ml Syr IV PUSH 0.5 mg Q2H PRN Administration Pain Rated 4-6 Hydromorphone HCl 1 mg 01/20/21 11:22 01/21/21 05:47 Hydromorphone Hcl Inj (*Crx) 1 Mg/Ml Syr IV PUSH 1 mg Q2H PRN Administration Pain Rated 7-10 Sodium Chloride 1,000 mls @ 100 mls/hr 01/19/21 18:50 01/21/21 08:00 Normal Saline Iv IV CONT 100 mls/hr .Q10H RUBEN Administration Lorazepam 1 mg 01/20/21 02:40 Lorazepam Inj (*Crx) 2 Mg/Ml Vial IV PUSH Q6H PRN Anxiety, pain. Ondansetron HCl 4 mg 01/19/21 18:38 01/21/21 04:30 Ondansetron Inj 4 Mg/2 Ml Vial IV PUSH 4 mg Q4H PRN Administration Nausea Sumatriptan Succinate 6 mg 01/20/21 02:40 01/21/21 05:59 Sumatriptan Succinate 6 Mg/0.5 Ml Vial SUB-Q 6 mg Q6H PRN Administration Migraine Radiology Results: ITS Impressions Abdomen/Pelvis CT 01/19/21 17:15 IMPRESSION: Interval development of mildly dil
--- NOTE | 2021-01-21 13:03 | PM.IMPN ---
Progress Note: A&P Assessment and Plan (1) Partial small bowel obstruction: Code(s): K56.600 - Partial intestinal obstruction, unspecified as to cause Status: Acute Assessment and Plan: Patient is a 51-year-old woman with a history of migraines, who presented to the emergency room with continued abdominal pain for 2 weeks which has become gradually worse and with associated vomiting prior to arrival. Patient came to the emergency room on 01/04/2021 for similar abdominal pain and her vitals, CBC, CMP, urine, CT scan were all normal. She was discharged home to follow-up with her PCP and her PCP told her to go to her GI specialist who she could not get an appointment with until February 2021. At home she was on a liquid diet of mostly Ensure due to abdominal symptoms. She continued to have constant pain every day which became gradually worse. Her last bowel movement was 01/19/2021 morning which she stated was ?normal?. Then she had worsening symptoms in vomiting which brought her to the emergency room. Initial vitals showed stable blood pressure 131/76, heart rate 92, afebrile, normal oxygenation on room air. Initial labs showed normal CBC, normal CMP other than elevated total protein and albumin, urinalysis showing cloudy urine with 2+ protein and amorphous sediment. CT abdomen showed Interval development of mildly dilated jejunum and ileum with normal calibered mid small bowel, and development of some mesenteric tenting and inflammation. She was admitted into the hospital for partial small-bowel obstruction with a consult to surgery, NPO and IV fluids. NG tube in place Surgery consulted and completing a SBFT and are pending results. Do not believe the patient has any type of an infection within normal white blood cell count and decreasing neutrophil count since arrival and not received any antibiotics. Continue monitoring daily. Appreciate surgery input. (2) Abdominal pain: Qualifiers: Abdominal location: upper abdomen, unspecified Qualified Code(s): R10.10 - Upper abdominal pain, unspecified Code(s): R10.9 - Unspecified abdominal pain Status: Acute Assessment and Plan: Supportive care Pain control Likely secondary to a small-bowel obstruction (3) Enteritis: Code(s): K52.9 - Noninfective gastroenteritis and colitis, unspecified Status: Acute Assessment and Plan: Clinically no signs of infection Continue to monitor Consider antibiotics if changes (4) Migraine: Code(s): G43.909 - Migraine, unspecified, not intractable, without status migrainosus Status: Acute Assessment and Plan: Holding p.o. meds P.r.n. Triptans Time Spent With Patient Time with patient: 25 - 35 minutes Subjective Date/time seen: 01/21/21 13:03 Interval history: Date of service 01/21/2021: Patient reports feeling slightly better since coming into the hospital discomfort today rated 6/10 and on arrival 10/10. She is still having abdominal distention/discomfort, nausea. denies Fevers or chills. She denies any chest pain, shortness of breath, cough, leg swelling, calf pain, or any other symptoms at this time. Review of Systems Review of Systems: All systems reviewed & are unremarkable except as noted in HPI and below Exam Narrative: General: 51-year-old woman who appears uncomfortable sitting up in bed with NG Tube in place. In no acute distress. Skin: No jaundice or cyanosis. Good skin turgor. Neck: Full range of motion. Supple. Respiratory: Lungs are clear to auscultation bilaterally. No bony chest wall tenderness. Cardiovascular: The heart has a regular rate and rhythm without murmur. Lower extremities: No lower extremity edema. Distal pulses are easily palpated. No calf
[2021-01-21 13:17] LABS: Anion Gap 10 mmol/L (8-16); Blood Urea Nitrogen 9 mg/dL (7-17); Calcium 8.8 mg/dL (8.4-10.2); Carbon Dioxide 22 mmol/L (22-30); Chloride 108 mmol/L (98-107); Estimated CRCL calculation 95 ml/min; Estimated Glomerular Filt Rate > 60; Glucose 92 mg/dL (65-110); Potassium 3.4 mmol/L (3.4-5.0); Sodium 140 mmol/L (137-145)
--- NOTE | 2021-01-21 15:34 | WPDHPUPDATE1 ---
History and Physical Update Update Date/Time: 01/21/21 15:34 History and Physical has been reviewed, including an updated exam of the patient. There are NO changes in the patient's condition. Risks, benefits, and alternatives have been discussed and questions answered. Patient agrees to proceed with procedure.
--- NOTE | 2021-01-21 16:00 | WPDANESEPPF ---
Anes - Initial Pre Proc Eval Procedure: Operation Date: 01/21/21 16:00 Proposed Procedures p Exploratory Laparotomy for Small Bowel Obstruction - Ruddy Reed MD Date/Time: 01/21/21 16:00 Surgeon: Marie Birmingham PA-C Pre Op Diagnosis: Abdominal pain, possible internal hernia w partial Patient Data Age: 51 Gender: F Height: 1.68 m Weight: 95.4 kg Last Vital Signs Temp 36.9 C 01/21/21 14:45 Pulse 94 01/21/21 14:45 Resp 12 01/21/21 14:45 BP 141/77 H 01/21/21 14:45 Pulse Ox 94 01/21/21 14:45 Allergies Allergy/AdvReac Type Severity Reaction Status Date / Time Penicillins Allergy Unknown Hives Verified 01/19/21 16:16 phenytoin Allergy Unknown Hives Verified 01/19/21 16:16 Sulfa (Sulfonamide Allergy Unknown HIVES Verified 01/19/21 16:16 Antibiotics) Home Medications Medication Instructions Recorded Confirmed Type nortriptyline 75 mg PO HS 01/19/21 01/19/21 History rimegepant [Nurtec ODT] 75 mg PO DAILY PRN 01/19/21 01/19/21 History sumatriptan succinate 6 mg SUBCUT ONCE PRN MDD 2/DAY 4/WK 01/19/21 01/19/21 History topiramate 100 mg PO QPM 01/19/21 01/19/21 History topiramate 150 mg PO QAM 01/19/21 01/19/21 History Laboratory Tests 01/21/21 01/21/21 06:23 06:23 WBC 7.5 K/mm3 K/mm3 (4.5-10.0) RBC 4.02 M/mm3 L M/mm3 (4.2-5.4) Hgb 10.9 g/dL L g/dL (12.0-15.0) Hct 35.1 % L % (37.0-47.0) MCV 87.3 fl fl (80-100) MCH 27.1 pg pg (26-34) MCHC 31.1 g/dl L g/dl (32-36) RDW 13.7 % % (11.5-14.5) Plt Count 217 k/mm3 k/mm3 (150-375) MPV 9.8 fl fl (7.4-10.4) Immature Gran % (Auto) 0.5 % % (0-0.5) Neut % (Auto) 74.7 % H % (45.5-73.1) Lymph % (Auto) 18.0 % L % (18.3-44.2) O'Brien % (Auto) 5.9 % % (2.6-8.5) Eos % (Auto) 0.8 % % (0-4.4) Baso % (Auto) 0.1 % L % (0.2-1.2) Lymph # (Auto) 1.35 K/mm3 K/mm3 (0.9-3.2) O'Brien # (Auto) 0.4 K/mm3 K/mm3 (0.1-0.6) Eos # (Auto) 0.1 K/mm3 K/mm3 (0-0.3) Baso # (Auto) 0.0 K/mm3 K/mm3 (0.0-0.1) Abs Immat Gran (auto) 0.04 K/mm3 H K/mm3 (0.00-0.031) Absolute Neuts (auto) 5.6 K/mm3 K/mm3 (1.3-6.7) Absolute Nucleated RBC 0.0 K/mm3 K/mm3 (0.0-0.012) Nucleated RBC % 0.0 % % (0.0-0.2) Sodium 140 mmol/L mmol/L (137-145) Potassium 3.4 mmol/L mmol/L (3.4-5.0) Chloride 108 mmol/L H mmol/L (98-107) Carbon Dioxide 22 mmol/L mmol/L (22-30) Anion Gap 10 mmol/L mmol/L (8-16) BUN 9 mg/dL mg/dL (7-17) Creatinine 0.70 mg/dL mg/dL (0.7-1.0) Estim Creat Clear Calc 95 ml/min ml/min Estimated GFR > 60 (59 - ) Glucose 92 mg/dL mg/dL (65-110) Calcium 8.8 mg/dL mg/dL (8.4-10.2) Patient hx anesthesia problems: none Family hx anesthesia problems: none Results Review: All pre-operative results and documents have been reviewed as part of the pre-operative evaluation. [facility] Past Medical History Medical History History of migraine GUANAKO (obstructive sleep apnea) Surgical History Surgical History History of colonoscopy History of laparoscopic appendectomy History of laparoscopy-assisted vaginal hysterectomy Family History Family History Other No pertinent family history Social History Social History Smoking status: Never smoker Second hand tobacco smoke exposure: No Alcohol intake: never Drinks per week: 0 Substance use: never Substance use type: does not use Spiritual care concerns: No Anes - Eval Final PreProcedure Day of Procedure 01/21/21 16:00 Patient weight: obese Heart: regular rate and rhythm Lungs: decreased frederick
--- NOTE | 2021-01-21 16:03 | PC.NURSE ---
Patient down to preop via stretcher at 1545. Report given to preop nurse.
[2021-01-21] MEDS: SCOPOLAMINE 1.5 MG PATCH TRANSDERM (16:04)
[2021-01-21] MEDS: LACTATED RINGERS 1,000 ML 30 ML IV CONT (16:04)
[2021-01-21] MEDS: diphenhydrAMINE HCl INJ 50 MG/ML VIAL 25 MG IV PUSH (16:04)
[2021-01-21] MEDS: KETOROLAC 15 MG/ML VIAL (*BKC) IV PUSH (16:19)
[2021-01-21] MEDS: ceFAZolin 2 GM/D5W 50 ML 2 GM/50 ML BAG IVPB (16:32)
--- NOTE | 2021-01-21 17:54 | W.PM.PROC2 ---
Procedure Note - Detailed Date of Procedure 01/21/21 Pre-op Diagnosis Small bowel obstruction Post-op Diagnosis same Procedure Performed Adhesiolysis Surgeon Ruddy Reed MD Fast Food Assistant Restaurant Manager [place] ALEX Anesthesia general Indications Patient is a 51-year-old woman who presented with abdominal pain nausea. She had some abdominal distension and CT scan showed evidence of a small-bowel obstruction. She was treated with a nasogastric tube and NPO. Her plain films look better today but a small bowel series showed no passage of the contrast consistent with a complete obstruction. She is taken to surgery now for laparotomy for small bowel obstruction. 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 There was no evidence of bowel ischemia or infarction. No other significant findings. Description of Procedure The patient was taken to surgery and induced into general anesthesia. The abdomen is prepped and draped. Midline incision was made and dissection was carried down through the subcutaneous to the midline fascia. The fascia was opened and the peritoneal cavity was entered. The fascia and peritoneum were opened the length of the wound. There was obviously collapsed small bowel as well as dilated small bowel. I eviscerated some of the dilated small bowel and eventually found adhesion primarily in the right lower quadrant. After exposing this I divided the adhesion. This allowed me to eviscerated much more of the small intestine. There was another pelvic adhesion off of the transverse colon which I divided with the cautery. From there I was able to examine the colon and small bowel thoroughly. The area of the previous appendectomy looked fine. The small bowel was run in its entirety. No additional areas of adhesion or blockage were noted. I then emptied the small intestinal contents into the stomach retrograde and evacuated these via the NG tube. Nearly a complete canister was filled with enteric content. The entire colon was reviewed. No other abnormalities were appreciated. We placed the abdominal contents back in its general anatomic location with the omentum positioned anteriorly over the contents. The midline fascia was closed with bidirectional running 1. PDS suture. The subcutaneous was closed with interrupted 3-0 Vicryl suture. The skin was closed with wide ilir. Xeroform gauze fluffs and Medipore tape were used provided dressing. The patient was awakened, extubated and taken to recovery in good condition. Sponge and needle counts were correct x2. Estimated Blood Loss -5.0 Urine Output 400 Drains Yes (NG tube, Bates catheter) Packing No Pathology none sent Complications No immediate complications Condition stable Disposition PACU
[2021-01-21] MEDS: fentaNYL CITRATE INJ (*CRX) 100 MCG/2 ML VIAL 25 MCG IV PUSH ×3 (18:19→18:54)
[2021-01-21] MEDS: MORPHINE SULFATE (*CRX) 4 MG/ML INJ IV PUSH ×2 (20:14→23:24)
[2021-01-21] MEDS: TOPIRAMATE 100 MG TABLET PO (20:22)
[2021-01-21] MEDS: NORTRIPTYLINE HCL 25 MG CAPSULE 75 MG PO (20:22)
[2021-01-21] MEDS: FAMOTIDINE 20 MG/2 ML VIAL IV PUSH (20:22)
[2021-01-21] MEDS: IBUPROFEN IV 800 MG/200 ML 800 MG/200 ML BAG 400 MG IVPB (22:39)
[2021-01-22 04:00] VITALS: BP 119/67; PULSE 103; RESP 20; TEMP 37.4; O2SAT 94
[2021-01-22] MEDS: MORPHINE SULFATE (*CRX) 4 MG/ML INJ IV PUSH (04:25)
[2021-01-22] MEDS: LACTATED RINGERS 1,000 ML 100 ML IV CONT (05:40)
[2021-01-22 06:42] LABS: Hematocrit 35.6 % (37.0-47.0); Hemoglobin 11.6 g/dL (12.0-15.0); Mean Corpuscular HGB Conc 32.6 g/dl (32-36); Mean Corpuscular Hemoglobin 27.8 pg (26-34); Mean Corpuscular Volume 85.2 fl (80-100); Mean Platelet Volume 10.2 fl (7.4-10.4); Platelet Count Result 197 k/mm3 (150-375); Red Blood Count 4.18 M/mm3 (4.2-5.4); Red Cell Distribution Width 13.4 % (11.5-14.5); White Blood Count 5.8 K/mm3 (4.5-10.0)
[2021-01-22 06:56] LABS: Anion Gap 11 mmol/L (8-16); Blood Urea Nitrogen 9 mg/dL (7-17); Calcium 8.7 mg/dL (8.4-10.2); Carbon Dioxide 22 mmol/L (22-30); Chloride 105 mmol/L (98-107); Estimated CRCL calculation 110 ml/min; Estimated Glomerular Filt Rate > 60; Glucose 91 mg/dL (65-110); Magnesium 1.9 mg/dL (1.6-2.3); Sodium 138 mmol/L (137-145)
[2021-01-22 08:00] VITALS: PULSE 103; RESP 20; O2SAT 94
[2021-01-22] MEDS: TOPIRAMATE 100 MG TABLET PO ×2 (09:05→17:33)
[2021-01-22] MEDS: TOPIRAMATE 25 MG TABLET 50 MG PO (09:05)
[2021-01-22] MEDS: ENOXAPARIN 40 MG/0.4 ML SYRINGE SUB-Q (09:05)
[2021-01-22] MEDS: FAMOTIDINE 20 MG/2 ML VIAL IV PUSH ×2 (09:06→20:33)
[2021-01-22] MEDS: MORPHINE SULFATE (*CRX) 2 MG/ML INJ IV PUSH (09:09)
[2021-01-22] MEDS: IBUPROFEN IV 800 MG/200 ML 800 MG/200 ML BAG 400 MG IVPB (11:23)
--- NOTE | 2021-01-22 12:04 | PM.IMPN ---
Progress Note: A&P Assessment and Plan (1) Partial small bowel obstruction: Code(s): K56.600 - Partial intestinal obstruction, unspecified as to cause Status: Acute Assessment and Plan: Patient is a 51-year-old woman with a history of migraines, who presented to the emergency room with continued abdominal pain for 2 weeks which has become gradually worse and with associated vomiting prior to arrival. Patient came to the emergency room on 01/04/2021 for similar abdominal pain and her vitals, CBC, CMP, urine, CT scan were all normal. She was discharged home to follow-up with her PCP and her PCP told her to go to her GI specialist who she could not get an appointment with until February 2021. At home she was on a liquid diet of mostly Ensure due to abdominal symptoms. She continued to have constant pain every day which became gradually worse. Her last bowel movement was 01/19/2021 morning which she stated was ?normal?. Then she had worsening symptoms in vomiting which brought her to the emergency room. Initial vitals showed stable blood pressure 131/76, heart rate 92, afebrile, normal oxygenation on room air. Initial labs showed normal CBC, normal CMP other than elevated total protein and albumin, urinalysis showing cloudy urine with 2+ protein and amorphous sediment. CT abdomen showed Interval development of mildly dilated jejunum and ileum with normal calibered mid small bowel, and development of some mesenteric tenting and inflammation. She was admitted into the hospital for partial small-bowel obstruction with a consult to surgery, NPO and IV fluids. NG tube in place SBFT found to have acute bowel obstruction and the patient was taken to surgery on 01/21/2021 for an adhesiolysis and resolution small-bowel obstruction. Currently at this time patient continues have NG tube, can have clear liquid sips Continue with pain control and monitoring symptoms daily. Continue monitoring daily. Appreciate surgery input. (2) Abdominal pain: Qualifiers: Abdominal location: upper abdomen, unspecified Qualified Code(s): R10.10 - Upper abdominal pain, unspecified Code(s): R10.9 - Unspecified abdominal pain Status: Acute Assessment and Plan: Supportive care Pain control (3) Enteritis: Code(s): K52.9 - Noninfective gastroenteritis and colitis, unspecified Status: Acute Assessment and Plan: Clinically no signs of infection Continue to monitor Consider antibiotics if changes (4) Migraine: Code(s): G43.909 - Migraine, unspecified, not intractable, without status migrainosus Status: Acute Assessment and Plan: Holding p.o. meds P.r.n. Triptans Time Spent With Patient Time with patient: 25 - 35 minutes Subjective Date/time seen: 01/22/21 12:04 Interval history: Date of service 01/22/2021: The patient reports feeling better today. She still has tenderness to her abdomen, but states it is due to her surgery. It is different pain than when she came into the hospital. She has been able to tolerate some sips of water without any issues. She denies passing any gas at this time. She feels slightly warm, but denies any fevers or chills. She denies any chest pain, shortness of breath, cough, nausea, vomiting, leg swelling, calf pain, or any other symptoms at this time. Review of Systems Review of Systems: All systems reviewed & are unremarkable except as noted in HPI and below Exam Narrative: General: 51-year-old woman who appears uncomfortable sitting up in bed with NG Tube in place. In no acute distress. Skin: No jaundice or cyanosis. Good skin turgor. Neck: Full range of motion. Supple. Respiratory: Lungs are clear to auscultation bilaterally. No bony chest wall
--- NOTE | 2021-01-22 12:35 | PM.PNGS ---
Progress Note: A&P Assessment and Plan (1) Partial small bowel obstruction: Code(s): K56.600 - Partial intestinal obstruction, unspecified as to cause Status: Acute Assessment and Plan: Await return of bowel function. Increase activity. Continue pain control and IV fluids. Subjective Subjective Date/Time Seen: 01/22/21 12:35 Post Op day: 1 Patient reports: still having pain, no flatus and no bowel movement Interval history: Patient doing well on postop day 1. She states that morphine is not helping with her pain very much. She denies any flatus or bowel movement. Exam GI: Inspection: incision (Dressing dry and intact) and obesity GI Palp: Yes Soft to palpation and Yes Tenderness to palpation present (GI) (Incisional) Auscultation: Hypoactive bowel sounds present Objective Data Vital Signs Vital Signs: Vital Signs - 24 hr 01/21/21 14:45 01/21/21 16:07 01/21/21 18:01 Temperature 36.9 C 36.2 C L 36.5 C Pulse Rate 94 93 85 Respiratory Rate 12 12 Blood Pressure 141/77 H 150/75 H 145/68 H Pulse Oximetry 94 98 100 01/21/21 18:08 01/21/21 18:23 01/21/21 18:38 Temperature Pulse Rate 74 80 76 Respiratory Rate 11 L 11 L 12 Blood Pressure 151/67 H 147/74 H 147/72 H Pulse Oximetry 100 100 100 01/21/21 18:53 01/21/21 19:25 01/21/21 19:50 Temperature 36.8 C 36.8 C Pulse Rate 81 90 98 Respiratory Rate 10 L 18 18 Blood Pressure 146/73 H 148/74 H 142/78 H Pulse Oximetry 100 96 97 01/21/21 20:50 01/21/21 23:59 01/22/21 04:00 Temperature 37.4 C 37.7 C H 37.4 C Pulse Rate 100 105 H 103 H Respiratory Rate 20 20 20 Blood Pressure 133/80 139/74 119/67 Pulse Oximetry 97 98 94 01/22/21 08:00 Temperature Pulse Rate 103 H Respiratory Rate 20 Blood Pressure Pulse Oximetry 94 Intake/Output Intake/Output: Intake & Output 01/19/21 01/20/21 01/21/21 01/22/21 23:59 23:59 23:59 23:59 Intake Total 2100 1999 1510 700 Output Total 950 1370 400 Balance 2100 1050 140 300 Meds/Results Medications: Active Medications Generic Name Dose Route Start Last Admin Trade Name Freq PRN Reason Stop Dose Admin Enoxaparin Sodium 40 mg 01/20/21 09:00 01/22/21 09:05 Enoxaparin 40 Mg/0.4 Ml Syringe SUB-Q 40 mg DAILY RUBEN Administration Famotidine 20 mg 01/21/21 21:00 01/22/21 09:06 Famotidine 20 Mg/2 Ml Vial IV PUSH 20 mg Q12HR RUBEN Administration Lactated Ringer's 1,000 mls @ 100 mls/hr 01/21/21 18:57 01/22/21 05:40 Lr - Lactated Ringers Iv IV CONT 100 mls/hr .Q10H RUBEN Administration Ibuprofen 800 mg in 200 mls @ 400 mls/hr 01/21/21 18:57 01/22/21 11:23 Caldolor 800 Mg/200 Ml IVPB 400 mls/hr Q6H PRN Administration Pain Rated 1-3 Potassium Chloride 500 mls @ 125 mls/hr 01/22/21 10:06 Kcl 40 Meq/D5w 500 Ml Peripheral IVPB 01/22/21 14:05 ONCE ONE Lorazepam 1 mg 01/20/21 02:40 Lorazepam Inj (*Crx) 2 Mg/Ml Vial IV PUSH Q6H PRN Anxiety, pain. Miscellaneous Information 1 each 01/21/21 00:01 Rimegepant [Nurtec Odt] 75 Mg Tablet,Disintegrating Is Non Formulary Med. Can Patient Use XX 02/20/21 00:00 CLARIFY RUBEN Morphine Sulfate 2 mg 01/21/21 18:57 01/22/21 09:09 Morphine Sulfate (*Crx) 2 Mg/Ml Inj IV PUSH 2 mg Q2H PRN Administration Pain Rated 4-6 Morphine Sulfate 4 mg 01/21/21 18:57 01/22/21 04:25 Morphine Sulfate (*Crx) 4 Mg/Ml Inj IV PUSH 4 mg Q2H PRN Administration Pain Rated 7-10 Naloxone HCl 0.1 mg 01/21/21 18:57 Naloxone Hcl 0.4 Mg/Ml Vial IV PUSH Q2M PRN Opiate Reversal Rimegepant [Nurtec 75 mg 01/21/21 12:17 Odt] 75 Mg Tablet, PO 02/20/21 12:16 Disintegrating Is DAILY PRN Non Formulary Med. Headache Can Patient Use Nortriptyline HCl 75 mg 01/21/21 21:00 01/21/21 20:22 Nortriptyline Hcl 25 Mg Capsule PO 75 mg HS RUBEN Administration Ondansetron HCl 4 mg 01/19/21 18:38 01/21/21 14:36 Ondansetron Inj 4 Mg/2 Ml Vial IV PU
[2021-01-22] MEDS: HYDROmorphone HCL INJ (*CRX) 1 MG/ML SYR IV PUSH ×4 (13:05→23:17)
[2021-01-22 14:22] VITALS: BP 127/70; PULSE 107; RESP 12; TEMP 37.2; O2SAT 92
[2021-01-22] MEDS: NORTRIPTYLINE HCL 25 MG CAPSULE 75 MG PO (20:32)
[2021-01-22 21:35] VITALS: BP 129/72; PULSE 103; RESP 20; TEMP 38.9; O2SAT 92
[2021-01-22 23:19] VITALS: TEMP 38.9
[2021-01-22] MEDS: ACETAMINOPHEN 500 MG TABLET 1000 MG PO (23:19)
[2021-01-23] MEDS: LACTATED RINGERS 1,000 ML 100 ML IV CONT ×2 (03:31→16:43)
[2021-01-23] MEDS: HYDROmorphone HCL INJ (*CRX) 1 MG/ML SYR IV PUSH ×7 (03:32→23:42)
[2021-01-23 05:30] VITALS: BP 118/71; PULSE 94; RESP 18; TEMP 39.1; O2SAT 91
[2021-01-23 06:04] VITALS: TEMP 39.1
[2021-01-23] MEDS: ACETAMINOPHEN 500 MG TABLET 1000 MG PO (06:04)
[2021-01-23 06:44] LABS: Basophils Percent Auto 0.2 % (0.2-1.2); Eosinophils Absolute Auto 0.1 K/mm3 (0-0.3); Eosinophils Percent Auto 2.4 % (0-4.4); Hematocrit 33.8 % (37.0-47.0); Hemoglobin 10.6 g/dL (12.0-15.0); Immature Granulocyte Absolute 0.01 K/mm3 (0.00-0.031); Immature Granulocyte Percent A 0.2 % (0-0.5); Lymphocytes Absolute Auto 1.29 K/mm3 (0.9-3.2); Lymphocytes Percent Auto 28.2 % (18.3-44.2); Mean Corpuscular HGB Conc 31.4 g/dl (32-36); Mean Corpuscular Hemoglobin 27.7 pg (26-34); Mean Corpuscular Volume 88.5 fl (80-100); Mean Platelet Volume 10.1 fl (7.4-10.4); Monocytes Absolute Auto 0.4 K/mm3 (0.1-0.6); Monocytes Percent Auto 8.3 % (2.6-8.5); Neutrophils Absolute Auto 2.8 K/mm3 (1.3-6.7); Neutrophils Percent Auto 60.7 % (45.5-73.1); Platelet Count Result 169 k/mm3 (150-375); Red Blood Count 3.82 M/mm3 (4.2-5.4); Red Cell Distribution Width 13.6 % (11.5-14.5); White Blood Count 4.6 K/mm3 (4.5-10.0)
[2021-01-23 06:56] LABS: Anion Gap 7 mmol/L (8-16); Blood Urea Nitrogen 12 mg/dL (7-17); Calcium 8.4 mg/dL (8.4-10.2); Carbon Dioxide 26 mmol/L (22-30); Chloride 103 mmol/L (98-107); Estimated CRCL calculation 95 ml/min; Estimated Glomerular Filt Rate > 60; Glucose 90 mg/dL (65-110); Potassium 3.4 mmol/L (3.4-5.0); Sodium 136 mmol/L (137-145)
[2021-01-23 08:00] VITALS: PULSE 94; RESP 18; O2SAT 91
[2021-01-23] MEDS: FAMOTIDINE 20 MG/2 ML VIAL IV PUSH ×2 (08:16→21:13)
[2021-01-23] MEDS: WATER FOR IRRIGATION, STERILE 1,000 ML BOTTLE 1000 ML (08:16)
[2021-01-23] MEDS: TOPIRAMATE 25 MG TABLET 50 MG PO (08:17)
[2021-01-23] MEDS: TOPIRAMATE 100 MG TABLET PO ×2 (08:17→18:32)
[2021-01-23] MEDS: ENOXAPARIN 40 MG/0.4 ML SYRINGE SUB-Q (08:17)
--- NOTE | 2021-01-23 10:52 | PM.PNGS ---
Progress Note: A&P Assessment and Plan (1) Partial small bowel obstruction: Code(s): K56.600 - Partial intestinal obstruction, unspecified as to cause Status: Acute Assessment and Plan: Await return of bowel function. Encouraged increased activity. (2) Fever: Code(s): R50.9 - Fever, unspecified Status: Acute Assessment and Plan: Most likely related to atelectasis given lack other symptoms. Blood cultures ordered by hospitalist. Will also obtain chest x-ray and urinalysis for initial workup. Discussed with patient the importance of increasing walking and use of incentive spirometer. Subjective Subjective Date/Time Seen: 01/23/21 10:52 Post Op day: 2 Patient reports: pain is less, no flatus and no bowel movement Interval history: Patient began having fevers overnight. She denies dysuria, cough, wheezing, leg swelling or any other associated symptoms. Still not passing flatus. Up to the chair this morning, and going to go for a walk shortly. Exam GI: Inspection: incision (Clean/dry/intact with ilir) GI Palp: Yes Soft to palpation and Yes Tenderness to palpation present (GI) (Incisional) Auscultation: Hypoactive bowel sounds present Objective Data Vital Signs Vital Signs: Vital Signs - 24 hr 01/22/21 14:22 01/22/21 21:35 01/22/21 23:19 Temperature 37.2 C 38.9 C H 38.9 C H Pulse Rate 107 H 103 H Respiratory Rate 12 20 Blood Pressure 127/70 129/72 Pulse Oximetry 92 92 01/23/21 05:30 01/23/21 06:04 01/23/21 08:00 Temperature 39.1 C H 39.1 C H Pulse Rate 94 94 Respiratory Rate 18 18 Blood Pressure 118/71 Pulse Oximetry 91 91 Intake/Output Intake/Output: Intake & Output 01/20/21 01/21/21 01/22/21 01/23/21 23:59 23:59 23:59 23:59 Intake Total 1999 1510 1900 Output Total 950 1370 650 800 Balance 1420 144 2334 -800 Meds/Results Medications: Active Medications Generic Name Dose Route Start Last Admin Trade Name Freq PRN Reason Stop Dose Admin Acetaminophen 1,000 mg 01/22/21 22:49 01/23/21 06:04 Acetaminophen 500 Mg Tablet PO 1,000 mg Q6H PRN Administration Mild Pain (1-3) or Fever Enoxaparin Sodium 40 mg 01/20/21 09:00 01/23/21 08:17 Enoxaparin 40 Mg/0.4 Ml Syringe SUB-Q 40 mg DAILY RUBEN Administration Famotidine 20 mg 01/21/21 21:00 01/23/21 08:16 Famotidine 20 Mg/2 Ml Vial IV PUSH 20 mg Q12HR RUBEN Administration Hydromorphone HCl 0.5 mg 01/22/21 12:34 Hydromorphone Hcl Inj (*Crx) 1 Mg/Ml Syr IV PUSH Q2H PRN Pain Rated 4-6 Hydromorphone HCl 1 mg 01/22/21 12:34 01/23/21 08:00 Hydromorphone Hcl Inj (*Crx) 1 Mg/Ml Syr IV PUSH 1 mg Q2H PRN Administration Pain Rated 7-10 Lactated Ringer's 1,000 mls @ 100 mls/hr 01/21/21 18:57 01/23/21 03:31 Lr - Lactated Ringers Iv IV CONT 100 mls/hr .Q10H RUBEN Administration Ibuprofen 800 mg in 200 mls @ 400 mls/hr 01/21/21 18:57 01/22/21 11:55 Caldolor 800 Mg/200 Ml IVPB Infused Q6H PRN Infusion Pain Rated 1-3 Lorazepam 1 mg 01/20/21 02:40 Lorazepam Inj (*Crx) 2 Mg/Ml Vial IV PUSH Q6H PRN Anxiety, pain. Miscellaneous Information 1 each 01/21/21 00:01 Rimegepant [Nurtec Odt] 75 Mg Tablet,Disintegrating Is Non Formulary Med. Can Patient Use XX 02/20/21 00:00 CLARIFY RUBEN Naloxone HCl 0.1 mg 01/21/21 18:57 Naloxone Hcl 0.4 Mg/Ml Vial IV PUSH Q2M PRN Opiate Reversal Rimegepant [Nurtec 75 mg 01/21/21 12:17 Odt] 75 Mg Tablet, PO 02/20/21 12:16 Disintegrating Is DAILY PRN Non Formulary Med. Headache Can Patient Use Nortriptyline HCl 75 mg 01/21/21 21:00 01/22/21 20:32 Nortriptyline Hcl 25 Mg Capsule PO 75 mg HS RUBEN Administration Ondansetron HCl 4 mg 01/19/21 18:38 01/21/21 14:36 Ondansetron Inj 4 Mg/2 Ml Vial IV PUSH 4 mg Q4H PRN Administration Nausea Sumatriptan Succinate 6 mg 01/20/21 02:40 01/21/21 05:59 Sumatriptan Succin
[2021-01-23 12:18] LABS: Add Urine Microscopic? YES; Appearance Urine Clear (Clear); Bacteria Urine Trace /hpf; Bilirubin Urine Negative (Negative); Blood Urine Negative (Negative); Color Urine Yellow (Yellow); Glucose Urine UA Negative (Negative); Ketones Urine 2+ mg/dL (Negative); Leukocyte Esterase Ur Negative LEU/UL (Negative); Mucus Urine Few /lpf; Nitrate Urine Negative (Negative); Protein Urine 1+ mg/dL (Negative); Specific Grav Ur 1.023 (1.001-1.035); Squamous Epithelial Cell Urine Few /hpf (Few)
[2021-01-23] MEDS: POTASSIUM CHLORIDE 20 MEQ PACKET (FOR LIQUID) 40 MEQ PO (13:27)
--- NOTE | 2021-01-23 13:53 | PM.IMPN ---
Progress Note: A&P Assessment and Plan (1) Partial small bowel obstruction: Code(s): K56.600 - Partial intestinal obstruction, unspecified as to cause Status: Acute Assessment and Plan: Patient is a 51-year-old woman with a history of migraines, who presented to the emergency room with continued abdominal pain for 2 weeks which has become gradually worse and with associated vomiting prior to arrival. Patient came to the emergency room on 01/04/2021 for similar abdominal pain and her vitals, CBC, CMP, urine, CT scan were all normal. She was discharged home to follow-up with her PCP and her PCP told her to go to her GI specialist who she could not get an appointment with until February 2021. At home she was on a liquid diet of mostly Ensure due to abdominal symptoms. She continued to have constant pain every day which became gradually worse. Her last bowel movement was 01/19/2021 morning which she stated was ?normal?. Then she had worsening symptoms in vomiting which brought her to the emergency room. Initial vitals showed stable blood pressure 131/76, heart rate 92, afebrile, normal oxygenation on room air. Initial labs showed normal CBC, normal CMP other than elevated total protein and albumin, urinalysis showing cloudy urine with 2+ protein and amorphous sediment. CT abdomen showed Interval development of mildly dilated jejunum and ileum with normal calibered mid small bowel, and development of some mesenteric tenting and inflammation. She was admitted into the hospital for partial small-bowel obstruction with a consult to surgery, NPO and IV fluids. NG tube in place SBFT found to have acute bowel obstruction and the patient was taken to surgery on 01/21/2021 for an adhesiolysis and resolution small-bowel obstruction. Currently at this time patient continues have NG tube, can have clear liquid sips Continue with pain control and monitoring symptoms daily. Continue monitoring daily. Appreciate surgery input. (2) Fever: Code(s): R50.9 - Fever, unspecified Status: Acute Assessment and Plan: Fever of 102F overnight. She denied feeling like she had any fevers and denied any new or worsening symptoms. Blood cultures taken Urinalysis shows no signs of infection CXR showed attelectasis vs pneumonia. Not having respiratory symptoms at this time. Could be from Atelectasis. WBC normal, normal differential. Will not start abx right now unless spikes another fever, will consider broadspectrum IV antibiotics. Continue monitoring (3) Abdominal pain: Qualifiers: Abdominal location: upper abdomen, unspecified Qualified Code(s): R10.10 - Upper abdominal pain, unspecified Code(s): R10.9 - Unspecified abdominal pain Status: Acute Assessment and Plan: Supportive care Pain control (4) Enteritis: Code(s): K52.9 - Noninfective gastroenteritis and colitis, unspecified Status: Acute Assessment and Plan: Clinically no signs of infection Continue to monitor Consider antibiotics if changes (5) Migraine: Code(s): G43.909 - Migraine, unspecified, not intractable, without status migrainosus Status: Acute Assessment and Plan: Holding p.o. meds P.r.n. Triptans Time Spent With Patient Time with patient: 25 - 35 minutes Subjective Date/time seen: 01/23/21 13:53 Interval history: Date of service 01/23/2021: The patient reports feeling better today.The patient denies any fevers overnight, even though they had continued recordings of fever of 102F. Denies chills, increased weakness or diaphoresis. Pain rated 6/10 currently without any worsening symptoms of abdominal pain, distention. She still has tenderness to her abdomen, but states it is due to her s
[2021-01-23 14:52] VITALS: BP 144/79; PULSE 95; RESP 14; TEMP 37.3; O2SAT 96
[2021-01-23] MEDS: HYDROmorphone HCL INJ (*CRX) 1 MG/ML SYR 0.5 MG IV PUSH (16:42)
[2021-01-23] MEDS: NORTRIPTYLINE HCL 25 MG CAPSULE 75 MG PO (21:15)
[2021-01-23 22:00] VITALS: BP 133/76; PULSE 102; RESP 18; TEMP 36.3; O2SAT 90
[2021-01-24] MEDS: LACTATED RINGERS 1,000 ML 100 ML IV CONT ×2 (03:17→08:37)
[2021-01-24] MEDS: ACETAMINOPHEN 500 MG TABLET 1000 MG PO ×2 (03:17→17:45)
[2021-01-24 06:00] VITALS: BP 152/61; PULSE 85; RESP 18; TEMP 36.3; O2SAT 98
[2021-01-24] MEDS: HYDROmorphone HCL INJ (*CRX) 1 MG/ML SYR IV PUSH ×2 (06:40→12:54)
[2021-01-24 06:41] LABS: Hematocrit 38.9 % (37.0-47.0); Hemoglobin 11.8 g/dL (12.0-15.0); Mean Corpuscular HGB Conc 30.3 g/dl (32-36); Mean Corpuscular Hemoglobin 27.1 pg (26-34); Mean Corpuscular Volume 89.4 fl (80-100); Mean Platelet Volume 10.6 fl (7.4-10.4); Platelet Count Result 138 k/mm3 (150-375); Red Blood Count 4.35 M/mm3 (4.2-5.4); Red Cell Distribution Width 13.2 % (11.5-14.5)
[2021-01-24 06:56] LABS: Anion Gap 12 mmol/L (8-16); Blood Urea Nitrogen 10 mg/dL (7-17); Calcium 9.1 mg/dL (8.4-10.2); Carbon Dioxide 23 mmol/L (22-30); Chloride 103 mmol/L (98-107); Estimated CRCL calculation 95 ml/min; Estimated Glomerular Filt Rate > 60; Glucose 71 mg/dL (65-110); Potassium 3.3 mmol/L (3.4-5.0); Sodium 138 mmol/L (137-145)
[2021-01-24 08:00] VITALS: PULSE 85; RESP 18; O2SAT 98
[2021-01-24] MEDS: ENOXAPARIN 40 MG/0.4 ML SYRINGE SUB-Q (08:36)
[2021-01-24] MEDS: TOPIRAMATE 100 MG TABLET PO ×2 (08:37→19:30)
[2021-01-24] MEDS: FAMOTIDINE 20 MG/2 ML VIAL IV PUSH ×2 (08:38→21:45)
[2021-01-24] MEDS: TOPIRAMATE 25 MG TABLET 50 MG PO (08:40)
--- NOTE | 2021-01-24 11:39 | PM.PNGS ---
Progress Note: A&P Assessment and Plan (1) Partial small bowel obstruction: Code(s): K56.600 - Partial intestinal obstruction, unspecified as to cause Status: Acute Assessment and Plan: Awaiting return of bowel function. High NG output overnight, KUB ordered to confirm NG placement. Continue NG tube, NPO, and IV fluids. Will order a PICC line and start TPN for nutrition. Encouraged increasing activity and walking the halls. Repeat labs tomorrow. (2) Fever: Code(s): R50.9 - Fever, unspecified Status: Acute Assessment and Plan: Afebrile overnight and this morning. Likely related to atelectasis. UA negative. Chest x-ray showed atelectasis. Encouraged to continue using the IS and increasing activity. Continue to monitor. (3) Hypokalemia: Code(s): E87.6 - Hypokalemia Status: Acute Assessment and Plan: K 3.3 this morning. 40meq oral potassium ordered this morning. Will give a dose of IV 40 meq KCL this afternoon. Magnesium 2.0 yesterday. Repeat labs tomorrow morning. Additional Plan I have discussed the plan of care with Dr. Reed. Subjective Subjective Date/Time Seen: 01/24/21 11:39 Post Op day: 3 (Adhesiolysis) Patient reports: no new complaints, no flatus, no bowel movement and afebrile Interval history: Patient seen and examined this morning. She reports feeling about the same today as yesterday. Her pain is well-controlled. Still not passing flatus. Reports getting up and walking in the halls multiple times yesterday. Plans to walk the halls again a few times today. She had a fever yesterday morning, but has been afebrile through the night and so far this morning. Review of Systems Review of Systems: All systems reviewed & are unremarkable except as noted in HPI and below Constitutional: Constitutional: Reports as per HPI, Reports no additional constitutional complaints, Denies chills, Denies fever(s) and Denies headache(s) Cardiovascular: Cardiovascular: Reports no additional cardiovascular complaints, Denies chest pain and Denies leg edema Respiratory: Respiratory: Reports no additional respiratory complaints, Denies cough and Denies dyspnea Gastrointestinal: Gastrointestinal: Reports as per HPI, Reports no additional gastrointestinal complaints, Reports bloating (about the same bloating since surgery) and Denies nausea Neurologic: Denies Abnormal speech present and Denies focal weakness Exam Const: General: comfortable, no acute distress, alert and awake Orientation/consciousness: patient oriented x3 Resp: Effort & Inspection: normal respiratory effort Auscultation: clear to auscultation bilaterally Cardio: Rate: regular rate Rhythm: regular rhythm GI: Inspection: non-distended and incision (Abdominal incision clean and dry, ilir intact) GI Palp: Yes Soft to palpation, Yes Tenderness to palpation present (GI) (incisional) and No Guarding due to palpation present (GI) Auscultation: Hypoactive bowel sounds present (very hypoactive) Skin: General skin exam: normal color Neuro: General: moves all extremities and no focal motor deficits Extrem: General: no clubbing, cyanosis or edema and no calf tenderness Psych: Mental Status: mental status grossly normal Insight: Good insight present (Psych) Judgement: Good judgement present (Psych) Objective Data Vital Signs Vital Signs: Vital Signs - 24 hr 01/23/21 14:52 01/23/21 22:00 01/24/21 06:00 Temperature 99.2 F 97.4 F L 97.4 F L Pulse Rate 95 102 H 85 Respiratory Rate 14 18 18 Blood Pressure 144/79 H 133/76 152/61 H Pulse Oximetry 96 90 98 01/24/21 08:00 Temperature Pulse Rate 85 Respiratory Rate 18 Blood Pressure Pulse Oximetry 98 Intake/Output Intake/Output: Intake & Output 01/21/21 01/22/21 01/23/21 01/24/21 23:59 23:59 23:59 23:59 Intake Total 1510 1900 1000 2310 Output Total 5516 527 9506 3900 Balance 140 1250 -700 -1590 Meds/Results Medications: Active Med
--- NOTE | 2021-01-24 12:12 | PM.IMPN ---
Progress Note: A&P Assessment and Plan (1) Partial small bowel obstruction: Code(s): K56.600 - Partial intestinal obstruction, unspecified as to cause Status: Acute Assessment and Plan: Patient is a 51-year-old woman with a history of migraines, who presented to the emergency room with continued abdominal pain for 2 weeks which has become gradually worse and with associated vomiting prior to arrival. Patient came to the emergency room on 01/04/2021 for similar abdominal pain and her vitals, CBC, CMP, urine, CT scan were all normal. She was discharged home to follow-up with her PCP and her PCP told her to go to her GI specialist who she could not get an appointment with until February 2021. At home she was on a liquid diet of mostly Ensure due to abdominal symptoms. She continued to have constant pain every day which became gradually worse. Her last bowel movement was 01/19/2021 morning which she stated was ?normal?. Then she had worsening symptoms in vomiting which brought her to the emergency room. Initial vitals showed stable blood pressure 131/76, heart rate 92, afebrile, normal oxygenation on room air. Initial labs showed normal CBC, normal CMP other than elevated total protein and albumin, urinalysis showing cloudy urine with 2+ protein and amorphous sediment. CT abdomen showed Interval development of mildly dilated jejunum and ileum with normal calibered mid small bowel, and development of some mesenteric tenting and inflammation. She was admitted into the hospital for partial small-bowel obstruction with a consult to surgery, NPO and IV fluids. NG tube in place SBFT found to have acute bowel obstruction and the patient was taken to surgery on 01/21/2021 for an adhesiolysis and resolution small-bowel obstruction. POD #3- Currently at this time patient continues have NG tube, can have clear liquid sips. Bowel sounds ,but not passing gas Continue with pain control and monitoring symptoms daily. Continue monitoring daily. Appreciate surgery input. (2) Fever: Code(s): R50.9 - Fever, unspecified Status: Acute Assessment and Plan: Fever of 102F overnight 01/23/21. She denied feeling like she had any fevers and denied any new or worsening symptoms. Blood cultures and are negative to date Urinalysis shows no signs of infection. Urine Culture did reflux and pending any growth CXR showed atelectasis vs pneumonia. Not having respiratory symptoms at this time. Could be from Atelectasis. Incentive spirometer ordered post op WBC normal, normal differential. Will not start abx right now unless spikes another fever, will consider broadspectrum IV antibiotics. Continue monitoring (3) Abdominal pain: Qualifiers: Abdominal location: upper abdomen, unspecified Qualified Code(s): R10.10 - Upper abdominal pain, unspecified Code(s): R10.9 - Unspecified abdominal pain Status: Acute Assessment and Plan: Supportive care Pain control (4) Enteritis: Code(s): K52.9 - Noninfective gastroenteritis and colitis, unspecified Status: Acute Assessment and Plan: Clinically no signs of infection Continue to monitor Consider antibiotics if changes (5) Migraine: Code(s): G43.909 - Migraine, unspecified, not intractable, without status migrainosus Status: Acute Assessment and Plan: Holding p.o. meds P.r.n. Triptans Subjective Date/time seen: 01/24/21 12:12 Interval history: Date of service 01/24/2021: The patient reports feeling better today. She denies any fevers overnight, and her Pain is currently rated 6/10 without any worsening symptoms of abdominal pain, distention. She still has tenderness to her ab
[2021-01-24] MEDS: POTASSIUM CHLORIDE 20 MEQ TABLET 40 MEQ PO (12:53)
[2021-01-24 14:00] VITALS: BP 146/67; PULSE 93; RESP 16; TEMP 36.9; O2SAT 96
[2021-01-24] MEDS: ONDANSETRON INJ 4 MG/2 ML VIAL IV PUSH (14:04)
[2021-01-24] MEDS: HYDROmorphone HCL INJ (*CRX) 1 MG/ML SYR 0.5 MG IV PUSH ×2 (14:15→21:57)
[2021-01-24] MEDS: NORTRIPTYLINE HCL 25 MG CAPSULE 75 MG PO (21:47)
[2021-01-24 22:00] VITALS: BP 150/72; PULSE 89; RESP 18; TEMP 36.7; O2SAT 98
[2021-01-24] MEDS: FAT EMULSIONS IV 20% 250 ML 20.83 ML IVPB (22:14)
[2021-01-24] MEDS: AMINO ACIDS 5%/D15W/E-LYTES/CA 2,000 ML with MULTIVITAMINS-12 INJ VIAL 1 2.5 ML, MULTIV... 40 ML IV CONT (22:14)
[2021-01-25] MEDS: HYDROmorphone HCL INJ (*CRX) 1 MG/ML SYR 0.5 MG IV PUSH ×2 (02:27→06:32)
[2021-01-25 02:33] VITALS: PULSE 89; RESP 18; O2SAT 98
[2021-01-25 03:14] LABS: Glucose Point of Care 81 mg/dl (65-105)
[2021-01-25 05:17] VITALS: BP 152/71; PULSE 86; RESP 18; TEMP 36.9; O2SAT 96
[2021-01-25] MEDS: CENTRAL LINE FLUSH 10 ML IV PUSH ×3 (06:00→22:29)
[2021-01-25 06:31] LABS: Glucose Point of Care 90 mg/dl (65-105)
[2021-01-25 07:33] LABS: Partial Thromboplastin Time 30.8 SECONDS (22.3-36.8)
[2021-01-25 07:34] LABS: Potassium 3.1 mmol/L (3.4-5.0)
[2021-01-25 07:50] LABS: Anion Gap 13 mmol/L (8-16); Blood Urea Nitrogen 8 mg/dL (7-17); Calcium 9.1 mg/dL (8.4-10.2); Carbon Dioxide 23 mmol/L (22-30); Chloride 103 mmol/L (98-107); Estimated CRCL calculation 109 ml/min; Estimated Glomerular Filt Rate > 60; Glucose 109 mg/dL (65-110); Magnesium 1.9 mg/dL (1.6-2.3); Phosphorus 3.1 mg/dL (2.5-4.5); Sodium 139 mmol/L (137-145)
[2021-01-25 07:55] LABS: Hematocrit 34.8 % (37.0-47.0); Hemoglobin 11.4 g/dL (12.0-15.0); Mean Corpuscular HGB Conc 32.8 g/dl (32-36); Mean Corpuscular Hemoglobin 27.7 pg (26-34); Mean Corpuscular Volume 84.7 fl (80-100); Mean Platelet Volume 10.1 fl (7.4-10.4); Platelet Count Result 190 k/mm3 (150-375); Red Blood Count 4.11 M/mm3 (4.2-5.4); Red Cell Distribution Width 13.2 % (11.5-14.5); White Blood Count 5.3 K/mm3 (4.5-10.0)
[2021-01-25] MEDS: POTASSIUM CHLORIDE 20 MEQ PACKET (FOR LIQUID) 40 MEQ PO (08:13)
[2021-01-25] MEDS: ENOXAPARIN 40 MG/0.4 ML SYRINGE SUB-Q (08:14)
[2021-01-25] MEDS: FAMOTIDINE 20 MG/2 ML VIAL IV PUSH ×2 (08:14→22:22)
[2021-01-25] MEDS: TOPIRAMATE 25 MG TABLET 50 MG PO (08:14)
[2021-01-25] MEDS: TOPIRAMATE 100 MG TABLET PO ×2 (08:15→18:16)
[2021-01-25 09:04] LABS: Transferrin 152 mg/dL (206-381)
--- NOTE | 2021-01-25 09:27 | PM.PNGS ---
Progress Note: A&P Assessment and Plan (1) Partial small bowel obstruction: Code(s): K56.600 - Partial intestinal obstruction, unspecified as to cause Status: Acute Assessment and Plan: Awaiting return of bowel function. Encouraged to increase her activity and ambulate the halls more today. Also encouraged to sit in the chair throughout the day as tolerated. Continue NG tube, NPO, and TPN for nutrition Repeat labs tomorrow. (2) Fever: Code(s): R50.9 - Fever, unspecified Status: Acute Assessment and Plan: Remains afebrile since 01/23 at 0600. (3) Hypokalemia: Code(s): E87.6 - Hypokalemia Status: Acute Assessment and Plan: K 3.1 this morning. Oral potassium again given this morning. With her ileus, she would more likely benefit from IV replacement. Continue IV fluids with KCL and repeat labs in the morning. Additional Plan I have discussed the plan of care with Dr. Reed. Subjective Subjective Date/Time Seen: 01/25/21 09:27 Post Op day: 4 (Adhesiolysis) Patient reports: no new complaints, voiding w/o difficulty, no flatus, no bowel movement and afebrile Interval history: Patient seen this morning and reports feeling about the same as yesterday. She reports pain is well controlled. Still not passing any flatus. Reports walking the halls only a little yesterday. Feels tired and did not sleep well last night. No other complaints at this time. Per the nurse, the maintenance IV fluids (KCL/NS) were not running when she came onto shift and not sure when they were last hung. Review of Systems Review of Systems: All systems reviewed & are unremarkable except as noted in HPI and below Constitutional: Constitutional: Reports as per HPI, Reports no additional constitutional complaints, Denies chills and Denies fever(s) Cardiovascular: Cardiovascular: Reports no additional cardiovascular complaints, Denies chest pain and Denies dyspnea Respiratory: Respiratory: Reports no additional respiratory complaints, Denies cough and Denies dyspnea Gastrointestinal: Gastrointestinal: Reports as per HPI and Reports no additional gastrointestinal complaints Neurologic: Reports system reviewed and no additional complaints, except as documented, Denies Abnormal speech present and Denies focal weakness Exam Const: General: comfortable, no acute distress, alert and awake Orientation/consciousness: patient oriented x3 Resp: Effort & Inspection: normal respiratory effort Auscultation: clear to auscultation bilaterally Cardio: Rate: regular rate Rhythm: regular rhythm GI: Inspection: incision (Midline incision clean and dry, ilir intact) and other (mildly distended) GI Palp: Yes Soft to palpation, Yes Tenderness to palpation present (GI) (incisional) and No Guarding due to palpation present (GI) Auscultation: Hypoactive bowel sounds present (still very hypoactive) Skin: General skin exam: normal color Neuro: General: moves all extremities and no focal motor deficits Extrem: General: no clubbing, cyanosis or edema and no calf tenderness Psych: Mental Status: mental status grossly normal Insight: Good insight present (Psych) Judgement: Good judgement present (Psych) Objective Data Vital Signs Vital Signs: Vital Signs - 24 hr 01/24/21 14:00 01/24/21 22:00 01/25/21 02:33 Temperature 98.4 F 98.0 F Pulse Rate 93 89 89 Respiratory Rate 16 18 18 Blood Pressure 146/67 H 150/72 H Pulse Oximetry 96 98 98 01/25/21 05:17 Temperature 98.4 F Pulse Rate 86 Respiratory Rate 18 Blood Pressure 152/71 H Pulse Oximetry 96 Intake/Output Intake/Output: Intake & Output 01/22/21 01/23/21 01/24/21 01/25/21 23:59 23:59 23:59 23:59 Intake Total 1900 1000 2460 20 Output Total 650 1700 4850 900 Balance 1428 -031 -2330 -732 Meds/Results Medications: Active Medications Generic Name Dose Route Start Last Admin Trade Name Freq PRN Reason Stop Dose Admin Acetaminophen
[2021-01-25] MEDS: KCL 40 MEQ/0.9% SOD CHL 1,000 ML 60 ML IV CONT (09:54)
[2021-01-25] MEDS: HYDROmorphone HCL INJ (*CRX) 1 MG/ML SYR IV PUSH ×3 (10:02→18:23)
[2021-01-25 10:57] VITALS: BMI 33.4
--- NOTE | 2021-01-25 11:03 | PCDIET ---
Dietitian consult for TPN. See Nutrition Assessment, Comprehensive. Thank you for the consult.
[2021-01-25] MEDS: PHENOL/SOD PHENO SPRAY CHERRY (*BKC) 1 SPRAY MUCOUS MEM (11:10)
[2021-01-25 12:29] LABS: Glucose Point of Care 94 mg/dl (65-105)
[2021-01-25 14:00] VITALS: BP 139/70; PULSE 83; RESP 14; TEMP 36.6; O2SAT 98
--- NOTE | 2021-01-25 14:42 | P.PNIM_ITS ---
Progress Note: A&P Assessment and Plan (1) Partial small bowel obstruction: Code(s): K56.600 - Partial intestinal obstruction, unspecified as to cause Status: Acute Assessment and Plan: * abdominal pain for 2 weeks which has become gradually worse and with associated vomiting prior to arrival. * Patient came to the emergency room on 01/04/2021 for similar abdominal pain with benign workup * At home she was on a liquid diet of mostly Ensure due to abdominal symptoms. * Last bowel movement was 01/19/2021 morning which she stated was ?normal?. * CT abdomen showed Interval development of mildly dilated jejunum and ileum with normal calibered mid small bowel, and development of some mesenteric tenting and inflammation. * SBFT found to have acute bowel obstruction and the patient was taken to surgery on 01/21/2021 for an adhesiolysis and resolution small-bowel obstruction. * NG tube in place still on LIMS * POD #4 * Reports gas today * Continue with pain control * General surgery consulted and to manage thank you for your recommendation (2) Fever: Code(s): R50.9 - Fever, unspecified Status: Acute Assessment and Plan: * temp 36.9C today, could be resolved * Fever of 102F overnight 01/23/21. She denied feeling like she had any fevers and denied any new or worsening symptoms. * Blood cultures are negative to date * Urinalysis shows no signs of infection. Urine Culture did reflux and pending any growth * CXR showed atelectasis vs pneumonia. Not having respiratory symptoms at this time. Could be from Atelectasis. * Incentive spirometer ordered post op * WBC 5.3, normal differential. (3) Abdominal pain: Qualifiers: Abdominal location: upper abdomen, unspecified Qualified Code(s): R10.10 - Upper abdominal pain, unspecified Code(s): R10.9 - Unspecified abdominal pain Status: Acute Assessment and Plan: * Supportive care * Pain control (4) Enteritis: Code(s): K52.9 - Noninfective gastroenteritis and colitis, unspecified Status: Acute Assessment and Plan: * Clinically no signs of infection * Continue to monitor * Consider antibiotics if changes (5) Migraine: Code(s): G43.909 - Migraine, unspecified, not intractable, without status migrainosus Status: Acute Assessment and Plan: * Holding p.o. meds * P.r.n. Triptans Subjective Date/time seen: 01/25/21 13:35 Interval history: Patient is a 51 year old female that is here for a small bowel obstruction that has now turned into an ileus. Patient stated that she is doing the best she can, and that her only complaint is pain in her abdomen. She stated that it hurts pretty much over the transverse colon all the way down to the rectum, which is also tender with palpitation. She denies adequate pain control with the IV medications. She also stated that she has been doing better with walking, and that she did pass gas today. She also stated that she has been very active today which she stated has made her feel very tired, and she just wants to take a nap. She denies chest pain, shortness of breath, nausea, vomiting, fevers, sweats, or chills. Review of Systems Review of Systems: All systems reviewed & are unremarkable except as noted in HPI and below Exam Const: General: cooperative, no acute distress, well developed, alert, awake, ill appearing, tired appearing and uncomfortable Nutritional Appearance: av
--- NOTE | 2021-01-25 14:42 | PM.IMPN ---
Progress Note: A&P Assessment and Plan (1) Partial small bowel obstruction: Code(s): K56.600 - Partial intestinal obstruction, unspecified as to cause Status: Acute Assessment and Plan: abdominal pain for 2 weeks which has become gradually worse and with associated vomiting prior to arrival. Patient came to the emergency room on 01/04/2021 for similar abdominal pain with benign workup At home she was on a liquid diet of mostly Ensure due to abdominal symptoms. Last bowel movement was 01/19/2021 morning which she stated was ?normal?. CT abdomen showed Interval development of mildly dilated jejunum and ileum with normal calibered mid small bowel, and development of some mesenteric tenting and inflammation. SBFT found to have acute bowel obstruction and the patient was taken to surgery on 01/21/2021 for an adhesiolysis and resolution small-bowel obstruction. NG tube in place still on LIMS POD #4 Reports gas today Continue with pain control General surgery consulted and to manage thank you for your recommendation (2) Fever: Code(s): R50.9 - Fever, unspecified Status: Acute Assessment and Plan: temp 36.9C today, could be resolved Fever of 102F overnight 01/23/21. She denied feeling like she had any fevers and denied any new or worsening symptoms. Blood cultures are negative to date Urinalysis shows no signs of infection. Urine Culture did reflux and pending any growth CXR showed atelectasis vs pneumonia. Not having respiratory symptoms at this time. Could be from Atelectasis. Incentive spirometer ordered post op WBC 5.3, normal differential. (3) Abdominal pain: Qualifiers: Abdominal location: upper abdomen, unspecified Qualified Code(s): R10.10 - Upper abdominal pain, unspecified Code(s): R10.9 - Unspecified abdominal pain Status: Acute Assessment and Plan: Supportive care Pain control (4) Enteritis: Code(s): K52.9 - Noninfective gastroenteritis and colitis, unspecified Status: Acute Assessment and Plan: Clinically no signs of infection Continue to monitor Consider antibiotics if changes (5) Migraine: Code(s): G43.909 - Migraine, unspecified, not intractable, without status migrainosus Status: Acute Assessment and Plan: Holding p.o. meds P.r.n. [place] Subjective Date/time seen: 01/25/21 13:35 Interval history: Patient is a 51 year old female that is here for a small bowel obstruction that has now turned into an ileus. Patient stated that she is doing the best she can, and that her only complaint is pain in her abdomen. She stated that it hurts pretty much over the transverse colon all the way down to the rectum, which is also tender with palpitation. She denies adequate pain control with the IV medications. She also stated that she has been doing better with walking, and that she did pass gas today. She also stated that she has been very active today which she stated has made her feel very tired, and she just wants to take a nap. She denies chest pain, shortness of breath, nausea, vomiting, fevers, sweats, or chills. Review of Systems Review of Systems: All systems reviewed & are unremarkable except as noted in HPI and below Exam Const: General: cooperative, no acute distress, well developed, alert, awake, ill appearing, tired appearing and uncomfortable Nutritional Appearance: average body habitus and overweight Orientation/consciousness: oriented to person, oriented to place, oriented to time and patient oriented x3 HENMT: Head: normal to inspection, normocephalic and atraumatic Ears: hearing grossly normal bilaterally General nose exam: Normal external nose present Face and sinus: normal facial exam Mouth: Yes Normal oral and palatal mucosa present Eyes: General: appearance normal, both eyes and all related structures Alignment and Position
[2021-01-25 14:55] LABS: Triglycerides 116 mg/dL (<150)
[2021-01-25] MEDS: AMINO ACIDS 5%/D15W/E-LYTES/CA 2,000 ML with MULTIVITAMINS-12 INJ VIAL 1 2.5 ML, MULTIV... 40 ML IV CONT (15:27)
[2021-01-25] MEDS: FAT EMULSIONS IV 20% 250 ML 20.83 ML IVPB (15:29)
[2021-01-25 18:21] LABS: Glucose Point of Care 90 mg/dl (65-105)
[2021-01-25 21:45] VITALS: BP 135/71; PULSE 79; RESP 18; TEMP 37.2; O2SAT 95
[2021-01-25] MEDS: NORTRIPTYLINE HCL 25 MG CAPSULE 75 MG PO (22:22)
[2021-01-25 22:38] LABS: Glucose Point of Care 113 mg/dl (65-105)
[2021-01-26] MEDS: HYDROmorphone HCL INJ (*CRX) 1 MG/ML SYR 0.5 MG IV PUSH ×3 (00:40→23:19)
[2021-01-26] MEDS: KCL 40 MEQ/0.9% SOD CHL 1,000 ML 60 ML IV CONT (00:52)
[2021-01-26 05:26] VITALS: BP 134/77; PULSE 92; RESP 18; TEMP 37.6; O2SAT 98
[2021-01-26 06:13] LABS: Estimated Glomerular Filt Rate > 60; Phosphorus 6.6 mg/dL (2.5-4.5)
[2021-01-26 06:24] LABS: Glucose Point of Care 114 mg/dl (65-105)
[2021-01-26] MEDS: CENTRAL LINE FLUSH 10 ML IV PUSH ×3 (06:37→22:17)
[2021-01-26 07:50] LABS: Sodium 141 mmol/L (137-145)
[2021-01-26 07:51] LABS: Anion Gap 9 mmol/L (8-16); Blood Urea Nitrogen 7 mg/dL (7-17); Carbon Dioxide 24 mmol/L (22-30); Chloride 108 mmol/L (98-107); Potassium 3.6 mmol/L (3.4-5.0)
[2021-01-26 07:52] LABS: Estimated CRCL calculation 109 ml/min; Glucose 116 mg/dL (65-110)
[2021-01-26] MEDS: FAMOTIDINE 20 MG/2 ML VIAL IV PUSH ×2 (08:20→22:04)
[2021-01-26] MEDS: ENOXAPARIN 40 MG/0.4 ML SYRINGE SUB-Q (08:20)
[2021-01-26] MEDS: TOPIRAMATE 25 MG TABLET 50 MG PO (08:20)
[2021-01-26] MEDS: IBUPROFEN IV 800 MG/200 ML 800 MG/200 ML BAG 200 MG IVPB (08:20)
[2021-01-26] MEDS: TOPIRAMATE 100 MG TABLET PO ×2 (08:20→18:14)
--- NOTE | 2021-01-26 09:01 | P.PNIM_ITS ---
Progress Note: A&P Assessment and Plan (1) Partial small bowel obstruction: Code(s): K56.600 - Partial intestinal obstruction, unspecified as to cause Status: Acute Assessment and Plan: * abdominal pain for 2 weeks which has become gradually worse and with associated vomiting prior to arrival. * Patient came to the emergency room on 01/04/2021 for similar abdominal pain with benign workup * At home she was on a liquid diet of mostly Ensure due to abdominal symptoms. * Last bowel movement was 01/19/2021 morning which she stated was ?normal?. * CT abdomen showed Interval development of mildly dilated jejunum and ileum with normal calibered mid small bowel, and development of some mesenteric tenting and inflammation. (01/19/21) * Abdominal xray: prominent amount of fecal material in the ascending colon and gaseous distention of multiple segments of the small and large bowel. (01/25/21) * SBFT found to have acute bowel obstruction and the patient was taken to surgery on 01/21/2021 for an adhesiolysis and resolution small-bowel obstruction. * NG tube in place still on LIMS * POD #5 * Reports about same amount of gas * Continue with pain control * General surgery consulted and to manage thank you for your recommendation (2) Fever: Code(s): R50.9 - Fever, unspecified Status: Acute Assessment and Plan: * temp 36.9C today, could be resolved * Fever of 102F overnight 01/23/21. She denied feeling like she had any fevers and denied any new or worsening symptoms. * Blood cultures are negative to date * Urinalysis shows no signs of infection. Urine Culture did reflux reports no growth to date * CXR showed atelectasis vs pneumonia. Not having respiratory symptoms at this time. Could be from Atelectasis. * Incentive spirometer ordered post op * WBC 5.3, normal differential. (01/25/21) (3) Abdominal pain: Qualifiers: Abdominal location: upper abdomen, unspecified Qualified Code(s): R10.10 - Upper abdominal pain, unspecified Code(s): R10.9 - Unspecified abdominal pain Status: Acute Assessment and Plan: * Supportive care * Pain control (4) Enteritis: Code(s): K52.9 - Noninfective gastroenteritis and colitis, unspecified Status: Acute Assessment and Plan: * Clinically no signs of infection * Continue to monitor * Consider antibiotics if changes (5) Migraine: Code(s): G43.909 - Migraine, unspecified, not intractable, without status migrainosus Status: Acute Assessment and Plan: * Holding p.o. meds * P.r.n. Triptans (6) Hypokalemia: Code(s): E87.6 - Hypokalemia Status: Acute Assessment and Plan: * Potassium has been very labile * Could be contributed to suction of NG tube * KCL 40meq at 40ml/hr * Continue to trend labs * Current K is 3.6 today Subjective Date/time seen: 01/26/21 10:15 Interval history: Date of Service 01/25/21 13:35 Patient is a 51 year old female that is here for a small bowel obstruction that has now turned into an ileus. Patient stated that she is doing the best she can, and that her only complaint is pain in her abdomen. She stated that it h urts pretty much over the transverse colon all the way down to the rectum, which is also tender with palpitation. She denies adequate pain control with the IV medications. She also stated that she has been doing better with walking, and that she did pass gas today. She a
--- NOTE | 2021-01-26 09:01 | PM.IMPN ---
Progress Note: A&P Assessment and Plan (1) Partial small bowel obstruction: Code(s): K56.600 - Partial intestinal obstruction, unspecified as to cause Status: Acute Assessment and Plan: abdominal pain for 2 weeks which has become gradually worse and with associated vomiting prior to arrival. Patient came to the emergency room on 01/04/2021 for similar abdominal pain with benign workup At home she was on a liquid diet of mostly Ensure due to abdominal symptoms. Last bowel movement was 01/19/2021 morning which she stated was ?normal?. CT abdomen showed Interval development of mildly dilated jejunum and ileum with normal calibered mid small bowel, and development of some mesenteric tenting and inflammation. (01/19/21) Abdominal xray: prominent amount of fecal material in the ascending colon and gaseous distention of multiple segments of the small and large bowel. (01/25/21) SBFT found to have acute bowel obstruction and the patient was taken to surgery on 01/21/2021 for an adhesiolysis and resolution small-bowel obstruction. NG tube in place still on LIMS POD #5 Reports about same amount of gas Continue with pain control General surgery consulted and to manage thank you for your recommendation (2) Fever: Code(s): R50.9 - Fever, unspecified Status: Acute Assessment and Plan: temp 36.9C today, could be resolved Fever of 102F overnight 01/23/21. She denied feeling like she had any fevers and denied any new or worsening symptoms. Blood cultures are negative to date Urinalysis shows no signs of infection. Urine Culture did reflux reports no growth to date CXR showed atelectasis vs pneumonia. Not having respiratory symptoms at this time. Could be from Atelectasis. Incentive spirometer ordered post op WBC 5.3, normal differential. (01/25/21) (3) Abdominal pain: Qualifiers: Abdominal location: upper abdomen, unspecified Qualified Code(s): R10.10 - Upper abdominal pain, unspecified Code(s): R10.9 - Unspecified abdominal pain Status: Acute Assessment and Plan: Supportive care Pain control (4) Enteritis: Code(s): K52.9 - Noninfective gastroenteritis and colitis, unspecified Status: Acute Assessment and Plan: Clinically no signs of infection Continue to monitor Consider antibiotics if changes (5) Migraine: Code(s): G43.909 - Migraine, unspecified, not intractable, without status migrainosus Status: Acute Assessment and Plan: Holding p.o. meds P.r.n. Triptans (6) Hypokalemia: Code(s): E87.6 - Hypokalemia Status: Acute Assessment and Plan: Potassium has been very labile Could be contributed to suction of NG tube KCL 40meq at 40ml/hr Continue to trend labs Current K is 3.6 today Subjective Date/time seen: 01/26/21 10:15 Interval history: Date of Service 01/25/21 13:35 Patient is a 51 year old female that is here for a small bowel obstruction that has now turned into an ileus. Patient stated that she is doing the best she can, and that her only complaint is pain in her abdomen. She stated that it hurts pretty much over the transverse colon all the way down to the rectum, which is also tender with palpitation. She denies adequate pain control with the IV medications. She also stated that she has been doing better with walking, and that she did pass gas today. She also stated that she has been very active today which she stated has made her feel very tired, and she just wants to take a nap. She denies chest pain, shortness of breath, nausea, vomiting, fevers, sweats, or chills. Date of Service 01/26/21 10:15 Patient stated that she did not get a very good night sleep last night. She still having the abdominal pain in the bilateral upper quadrant however she said it is getting better. She denies having problems with nausea vomiting. She al
--- NOTE | 2021-01-26 10:51 | PM.PNGS ---
Progress Note: A&P Assessment and Plan (1) Partial small bowel obstruction: Code(s): K56.600 - Partial intestinal obstruction, unspecified as to cause Status: Acute Assessment and Plan: Awaiting full return of bowel function. Passing some flatus this morning and better bowel sounds today. Will continue NG tube and NPO. Continue Clinimix/TPN for nutrition. Will increase TPN rate per Dietitian's recommendations. Encouraged to continue increasing activity and ambulate in the halls again today. Encouraged IS use. (2) Hypokalemia: Code(s): E87.6 - Hypokalemia Status: Acute Assessment and Plan: K 3.6. Continue IV fluids. Repeat labs tomorrow. Additional Plan I have discussed the plan of care with Dr. Reed. Subjective Subjective Date/Time Seen: 01/26/21 10:51 Post Op day: 5 (Adhesiolysis) Patient reports: feels better, pain is less, voiding w/o difficulty, flatus, no bowel movement and afebrile Interval history: Patient seen and examined this morning. She reports her pain and boating is a little better this morning. Passing little flatus this morning. Walked the halls 2-3 times yesterday. There is no documented NG output from yesterday or overnight. Per the nurse, she had 600-700 cc out of the NG tube yesterday during the day and is unsure how much she had overnight. Review of Systems Review of Systems: All systems reviewed & are unremarkable except as noted in HPI and below Constitutional: Constitutional: Reports as per HPI, Reports no additional constitutional complaints, Denies chills and Denies fever(s) Cardiovascular: Cardiovascular: Reports no additional cardiovascular complaints, Denies chest pain and Denies leg edema Respiratory: Respiratory: Reports no additional respiratory complaints, Denies cough and Denies dyspnea Gastrointestinal: Gastrointestinal: Reports as per HPI and Reports no additional gastrointestinal complaints Neurologic: Reports system reviewed and no additional complaints, except as documented, Denies Abnormal speech present and Denies focal weakness Exam Const: General: comfortable, no acute distress, alert and awake Orientation/consciousness: patient oriented x3 Resp: Effort & Inspection: normal respiratory effort Auscultation: clear to auscultation bilaterally Cardio: Rate: regular rate Rhythm: regular rhythm GI: Inspection: non-distended and incision (Abdominal incision clean & dry, minimal bruising) GI Palp: Yes Soft to palpation, Yes Tenderness to palpation present (GI) (incisional), No Guarding due to palpation present (GI) and No Rebound tenderness present Auscultation: High-pitched bowel sounds present and Hypoactive bowel sounds present (more bowel sounds today) Skin: General skin exam: normal color Neuro: General: moves all extremities and no focal motor deficits Extrem: General: no clubbing, cyanosis or edema and no calf tenderness Psych: Mental Status: mental status grossly normal Insight: Good insight present (Psych) Judgement: Good judgement present (Psych) Objective Data Vital Signs Vital Signs: Vital Signs - 24 hr 01/25/21 14:00 01/25/21 21:45 01/26/21 05:26 Temperature 97.8 F 99.0 F 99.6 F Pulse Rate 83 79 92 Respiratory Rate 14 18 18 Blood Pressure 139/70 135/71 134/77 Pulse Oximetry 98 95 98 Intake/Output Intake/Output: Intake & Output 01/23/21 01/24/21 01/25/21 01/26/21 23:59 23:59 23:59 23:59 Intake Total 1000 2460 900 1250 Output Total 1700 4850 1550 Balance -700 -2390 -650 1250 Meds/Results Medications: Active Medications Generic Name Dose Route Start Last Admin Trade Name Rowdyq PRN Reason Stop Dose Admin Acetaminophen 1,000 mg 01/22/21 22:49 01/24/21 17:45 Acetaminophen 500 Mg Tablet PO 1,000 mg Q6H PRN Administration Mild Pain (1-3) or Fever Enoxaparin Sodium 40 mg 01/20/21 09:00 01/26/21 08:20 Enoxaparin 40 Mg/0.4 Ml Syringe SUB-Q 40 mg DAILY RUBEN Administration Famot
[2021-01-26 12:18] LABS: Glucose Point of Care 111 mg/dl (65-105)
[2021-01-26] MEDS: ACETAMINOPHEN 500 MG TABLET 1000 MG PO ×2 (13:18→18:14)
[2021-01-26 14:00] VITALS: BP 138/71; PULSE 91; RESP 14; TEMP 36.7; O2SAT 99
[2021-01-26] MEDS: AMINO ACIDS 5%/D15W/E-LYTES/CA 2,000 ML with MULTIVITAMINS-12 INJ VIAL 1 2.5 ML, MULTIV... 40 ML IV CONT (15:32)
[2021-01-26] MEDS: FAT EMULSIONS IV 20% 250 ML 20.8 ML IVPB (15:33)
[2021-01-26] MEDS: HYDROmorphone HCL INJ (*CRX) 1 MG/ML SYR IV PUSH (18:15)
[2021-01-26 20:00] VITALS: O2SAT 97
[2021-01-26 21:07] VITALS: PULSE 91; RESP 16; O2SAT 99
[2021-01-26 21:51] VITALS: BP 128/53; PULSE 95; RESP 18; TEMP 36.3; O2SAT 96
[2021-01-26] MEDS: NORTRIPTYLINE HCL 25 MG CAPSULE 75 MG PO (22:04)
[2021-01-26] MEDS: KCL 40 MEQ/0.9% SOD CHL 1,000 ML 40 ML IV CONT (22:24)
[2021-01-26] MEDS: IBUPROFEN IV 800 MG/200 ML 800 MG/200 ML BAG 400 MG IVPB (22:42)
[2021-01-27 05:40] VITALS: BP 132/70; PULSE 81; RESP 17; TEMP 36.8; O2SAT 96
[2021-01-27] MEDS: ACETAMINOPHEN 500 MG TABLET 1000 MG PO ×3 (05:44→19:25)
[2021-01-27] MEDS: IBUPROFEN IV 800 MG/200 ML 800 MG/200 ML BAG 400 MG IVPB (08:16)
[2021-01-27] MEDS: TOPIRAMATE 100 MG TABLET PO ×2 (08:18→19:25)
[2021-01-27] MEDS: ENOXAPARIN 40 MG/0.4 ML SYRINGE SUB-Q (08:18)
[2021-01-27] MEDS: FAMOTIDINE 20 MG/2 ML VIAL IV PUSH ×2 (08:18→21:44)
[2021-01-27] MEDS: TOPIRAMATE 25 MG TABLET 50 MG PO (08:19)
[2021-01-27] MEDS: CENTRAL LINE FLUSH 20 ML IV PUSH ×2 (08:19→14:15)
[2021-01-27] MEDS: CENTRAL LINE FLUSH 10 ML IV PUSH ×4 (08:19→21:44)
[2021-01-27 08:38] LABS: Basophils Percent Auto 0.6 % (0.2-1.2); Eosinophils Absolute Auto 0.3 K/mm3 (0-0.3); Eosinophils Percent Auto 5.1 % (0-4.4); Hematocrit 34.7 % (37.0-47.0); Hemoglobin 11.1 g/dL (12.0-15.0); Immature Granulocyte Absolute 0.03 K/mm3 (0.00-0.031); Immature Granulocyte Percent A 0.6 % (0-0.5); Lymphocytes Absolute Auto 1.12 K/mm3 (0.9-3.2); Mean Corpuscular Hemoglobin 27.3 pg (26-34); Mean Corpuscular Volume 85.3 fl (80-100); Monocytes Absolute Auto 0.4 K/mm3 (0.1-0.6); Monocytes Percent Auto 8.3 % (2.6-8.5); Neutrophils Absolute Auto 3.2 K/mm3 (1.3-6.7); Neutrophils Percent Auto 63.4 % (45.5-73.1); Platelet Count Result 199 k/mm3 (150-375); Red Blood Count 4.07 M/mm3 (4.2-5.4); Red Cell Distribution Width 13.8 % (11.5-14.5); White Blood Count 5.1 K/mm3 (4.5-10.0)
--- NOTE | 2021-01-27 09:03 | P.PNIM_ITS ---
Progress Note: A&P Assessment and Plan (1) Partial small bowel obstruction: Code(s): K56.600 - Partial intestinal obstruction, unspecified as to cause Status: Acute Assessment and Plan: * abdominal pain for 2 weeks which has become gradually worse and with associated vomiting prior to arrival. * Patient came to the emergency room on 01/04/2021 for similar abdominal pain with benign workup * At home she was on a liquid diet of mostly Ensure due to abdominal symptoms. * Last bowel movement was 01/19/2021 morning which she stated was ?normal?. * CT abdomen showed Interval development of mildly dilated jejunum and ileum with normal calibered mid small bowel, and development of some mesenteric tenting and inflammation. (01/19/21) * Abdominal xray: prominent amount of fecal material in the ascending colon and gaseous distention of multiple segments of the small and large bowel. (01/25/21) * SBFT found to have acute bowel obstruction and the patient was taken to surgery on 01/21/2021 for an adhesiolysis and resolution small-bowel obstruction. * POD #6 * Reports about same amount of gas * Continue with pain control * General surgery consulted and to manage thank you for your recommendation * patient had a bowel movement today around 2:00 p.m. * NG tube was ordered to be removed * patient started on clear liquid diet (2) Fever: Code(s): R50.9 - Fever, unspecified Status: Acute Assessment and Plan: * temp 36.8C today, seems to be resolved * Fever of 102F overnight 01/23/21. She denied feeling like she had any fevers and denied any new or worsening symptoms. * Blood cultures are negative to date * Urinalysis shows no signs of infection. Urine Culture did reflux reports no growth to date * CXR showed atelectasis vs pneumonia. Not having respiratory symptoms at this time. Could be from Atelectasis. 01/24/21 * Incentive spirometer ordered post op * WBC 5.1, normal differential. (01/25/21) (3) Abdominal pain: Qualifiers: Abdominal location: upper abdomen, unspecified Qualified Code(s): R10.10 - Upper abdominal pain, unspecified Code(s): R10.9 - Unspecified abdominal pain Status: Acute Assessment and Plan: * Supportive care * Pain control (4) Enteritis: Code(s): K52.9 - Noninfective gastroenteritis and colitis, unspecified Status: Acute Assessment and Plan: * Clinically no signs of infection * Continue to monitor * Consider antibiotics if changes (5) Migraine: Code(s): G43.909 - Migraine, unspecified, not intractable, without status migrainosus Status: Acute Assessment and Plan: * Holding p.o. meds * P.r.n. Triptans (6) Hypokalemia: Code(s): E87.6 - Hypokalemia Status: Acute Assessment and Plan: * Potassium has been very labile * Could be contributed to suction of NG tube * KCL 40meq at 40ml/hr * Continue to trend labs * Current K is 3.6 today Subjective Date/time seen: 01/27/21 10:40 Interval history: Date of Service 01/25/21 13:35 Patient is a 51 year old female that is here for a small bowel obstruction that has now turned into an ileus. Patient stated that she is doing the best she can, and that her only complaint is pain in her abdomen. She stated that it hurts pretty much over the transverse colon all the way down to the rectum, which is also tender with palpitation. She denies adequate pain control with the
--- NOTE | 2021-01-27 09:03 | PM.IMPN ---
Progress Note: A&P Assessment and Plan (1) Partial small bowel obstruction: Code(s): K56.600 - Partial intestinal obstruction, unspecified as to cause Status: Acute Assessment and Plan: abdominal pain for 2 weeks which has become gradually worse and with associated vomiting prior to arrival. Patient came to the emergency room on 01/04/2021 for similar abdominal pain with benign workup At home she was on a liquid diet of mostly Ensure due to abdominal symptoms. Last bowel movement was 01/19/2021 morning which she stated was ?normal?. CT abdomen showed Interval development of mildly dilated jejunum and ileum with normal calibered mid small bowel, and development of some mesenteric tenting and inflammation. (01/19/21) Abdominal xray: prominent amount of fecal material in the ascending colon and gaseous distention of multiple segments of the small and large bowel. (01/25/21) SBFT found to have acute bowel obstruction and the patient was taken to surgery on 01/21/2021 for an adhesiolysis and resolution small-bowel obstruction. POD #6 Reports about same amount of gas Continue with pain control General surgery consulted and to manage thank you for your recommendation patient had a bowel movement today around 2:00 p.m. NG tube was ordered to be removed patient started on clear liquid diet (2) Fever: Code(s): R50.9 - Fever, unspecified Status: Acute Assessment and Plan: temp 36.8C today, seems to be resolved Fever of 102F overnight 01/23/21. She denied feeling like she had any fevers and denied any new or worsening symptoms. Blood cultures are negative to date Urinalysis shows no signs of infection. Urine Culture did reflux reports no growth to date CXR showed atelectasis vs pneumonia. Not having respiratory symptoms at this time. Could be from Atelectasis. 01/24/21 Incentive spirometer ordered post op WBC 5.1, normal differential. (01/25/21) (3) Abdominal pain: Qualifiers: Abdominal location: upper abdomen, unspecified Qualified Code(s): R10.10 - Upper abdominal pain, unspecified Code(s): R10.9 - Unspecified abdominal pain Status: Acute Assessment and Plan: Supportive care Pain control (4) Enteritis: Code(s): K52.9 - Noninfective gastroenteritis and colitis, unspecified Status: Acute Assessment and Plan: Clinically no signs of infection Continue to monitor Consider antibiotics if changes (5) Migraine: Code(s): G43.909 - Migraine, unspecified, not intractable, without status migrainosus Status: Acute Assessment and Plan: Holding p.o. meds P.r.n. Triptans (6) Hypokalemia: Code(s): E87.6 - Hypokalemia Status: Acute Assessment and Plan: Potassium has been very labile Could be contributed to suction of NG tube KCL 40meq at 40ml/hr Continue to trend labs Current K is 3.6 today Subjective Date/time seen: 01/27/21 10:40 Interval history: Date of Service 01/25/21 13:35 Patient is a 51 year old female that is here for a small bowel obstruction that has now turned into an ileus. Patient stated that she is doing the best she can, and that her only complaint is pain in her abdomen. She stated that it hurts pretty much over the transverse colon all the way down to the rectum, which is also tender with palpitation. She denies adequate pain control with the IV medications. She also stated that she has been doing better with walking, and that she did pass gas today. She also stated that she has been very active today which she stated has made her feel very tired, and she just wants to take a nap. She denies chest pain, shortness of breath, nausea, vomiting, fevers, sweats, or chills. Date of Service 01/26/21 10:15 Patient stated that she did not get a very good night sleep last night. She still having the abdominal pain in the bilateral u
[2021-01-27 09:13] LABS: Alanine Aminotransferase 37 U/L (4-35); Albumin Level 3.7 g/dL (3.5-5.1); Alkaline Phosphatase 53 U/L (38-126); Anion Gap 7 mmol/L (8-16); Aspartate Amino Transferase 49 U/L (14-36); Bilirubin,Total 0.5 mg/dL (0.2-1.3); Blood Urea Nitrogen 9 mg/dL (7-17); Calcium 9.1 mg/dL (8.4-10.2); Carbon Dioxide 25 mmol/L (22-30); Chloride 111 mmol/L (98-107); Estimated CRCL calculation 127 ml/min; Estimated Glomerular Filt Rate > 60; Glucose 113 mg/dL (65-110); Magnesium 1.9 mg/dL (1.6-2.3); Potassium 4.2 mmol/L (3.4-5.0); Sodium 143 mmol/L (137-145)
--- NOTE | 2021-01-27 09:34 | PM.PNGS ---
Progress Note: A&P Assessment and Plan (1) Partial small bowel obstruction: Code(s): K56.600 - Partial intestinal obstruction, unspecified as to cause Status: Acute Assessment and Plan: Awaiting full return of bowel function. Passing some flatus but still no BM. Lots of stool in the ascending colon noted on plain films a few days ago. Will get a Gastrografin SBFT, depending on results we may be able to remove the NG tube today. Continue NG tube and NPO for now. Continue TPN/Clinimix. Encouraged ambulating in halls, OOB, and IS use. (2) Hypokalemia: Code(s): E87.6 - Hypokalemia Status: Acute Assessment and Plan: Potassium normal today. Monitor labs. Additional Plan I have discussed the plan of care with Dr. Reed. Subjective Subjective Date/Time Seen: 01/27/21 08:40 Post Op day: 6 (Ahesiolysis) Patient reports: voiding w/o difficulty, flatus, no bowel movement and afebrile Interval history: Patient seen and examined this morning. She reports she is feeling well today. No significant changes or new complaints. Reports passing flatus and walked the halls multiple times yesterday, but no BM. NG tube with 200 cc documented output overnight. Review of Systems Review of Systems: All systems reviewed & are unremarkable except as noted in HPI and below Constitutional: Constitutional: Reports no additional constitutional complaints, Denies chills, Denies fever(s) and Denies headache(s) Cardiovascular: Cardiovascular: Reports no additional cardiovascular complaints, Denies chest pain and Denies pedal edema Respiratory: Respiratory: Reports no additional respiratory complaints, Denies cough and Denies dyspnea Gastrointestinal: Gastrointestinal: Reports as per HPI and Reports no additional gastrointestinal complaints Neurologic: Denies confusion and Denies dizziness Exam Const: General: comfortable, no acute distress, alert and awake Orientation/consciousness: patient oriented x3 Resp: Effort & Inspection: normal respiratory effort Auscultation: clear to auscultation bilaterally Cardio: Rate: regular rate Rhythm: regular rhythm GI: Inspection: incision (Midline incision clean and dry, ilir intact) and other (Mildly distended) GI Palp: Yes Soft to palpation, Yes Tenderness to palpation present (GI) (incisional) and No Guarding due to palpation present (GI) Auscultation: normal bowel sounds Skin: General skin exam: normal color Neuro: General: moves all extremities and no focal motor deficits Extrem: General: no clubbing, cyanosis or edema and no calf tenderness Psych: Mental Status: mental status grossly normal Insight: Good insight present (Psych) Judgement: Good judgement present (Psych) Objective Data Vital Signs Vital Signs: Vital Signs - 24 hr 01/26/21 14:00 01/26/21 20:00 01/26/21 21:07 Temperature 98.1 F Pulse Rate 91 91 Respiratory Rate 14 16 Blood Pressure 138/71 Pulse Oximetry 99 97 99 01/26/21 21:51 01/27/21 05:40 Temperature 97.3 F L 98.3 F Pulse Rate 95 81 Respiratory Rate 18 17 Blood Pressure 128/53 L 132/70 Pulse Oximetry 96 96 Intake/Output Intake/Output: Intake & Output 01/24/21 01/25/21 01/26/21 01/27/21 23:59 23:59 23:59 23:59 Intake Total 2460 900 3810 Output Total 4850 1550 200 Balance -2390 -650 3610 Meds/Results Medications: Active Medications Generic Name Dose Route Start Last Admin Trade Name Freq PRN Reason Stop Dose Admin Acetaminophen 1,000 mg 01/26/21 11:00 01/27/21 05:44 Acetaminophen 500 Mg Tablet PO 1,000 mg Q6HR RUBEN Administration Enoxaparin Sodium 40 mg 01/20/21 09:00 01/27/21 08:18 Enoxaparin 40 Mg/0.4 Ml Syringe SUB-Q 40 mg DAILY RUBEN Administration Famotidine 20 mg 01/21/21 21:00 01/27/21 08:18 Famotidine 20 Mg/2 Ml Vial IV PUSH 20 mg Q12HR RUBEN Administration Hydromorphone HCl 0.5 mg 01/22/21 12:34 01/26/21 23:19 Hydromorphone Hcl Inj (*Crx) 1 M
[2021-01-27] MEDS: HYDROmorphone HCL INJ (*CRX) 1 MG/ML SYR IV PUSH (10:44)
[2021-01-27] MEDS: ONDANSETRON INJ 4 MG/2 ML VIAL IV PUSH (10:44)
--- NOTE | 2021-01-27 12:02 | PCNFU ---
Nutrition Follow-Up Complete: Altered GI function as related to partial bowel obstruction as evidenced by NPO/TPN Goal: Meet estimated nutritional needs Patient is progressing towards goal. We will continue current goal. Pt current nutrition is NPO/TPN. Last recorded weight is 91.5 kg, down from 95.4 kg. Bowel Motility:No BM to report. Labs Reviewed:Glu 113, K 3.1,Hct 34.7,Hgb 11.1, AST 49, ALT 37 Meds Noted:Zofran,Dilaudid, Lovenox, Topamax,Caldolor, Clinimix 5/15 at 60ml/hr, 250 ml 20% Lipid Emulsion Additional Notes: Nutrition follow up, spoke with patient today. Passing gas, no BM at this time. SBFT today. NGT in place. TPN increased yesterday to 60 ml/hr providing 1522 kcals and 72 gms protein. Spoke with AMBROSIO Wagner today, hoping to pull NGT and advance to clear liquids soon. Monitoring: Will monitor every Sunday and Sunday
[2021-01-27 14:00] VITALS: BP 128/74; PULSE 94; RESP 18; TEMP 36.1; O2SAT 99
[2021-01-27 15:09] LABS: Triglycerides 138 mg/dL (<150)
[2021-01-27] MEDS: FAT EMULSIONS IV 20% 250 ML 20.8 ML IVPB (16:19)
[2021-01-27] MEDS: AMINO ACIDS 5%/D15W/E-LYTES/CA 2,000 ML with MULTIVITAMINS-12 INJ VIAL 1 2.5 ML, MULTIV... 60 ML IV CONT (16:20)
[2021-01-27 20:00] VITALS: PULSE 92; RESP 16; O2SAT 97
[2021-01-27 21:58] VITALS: BP 131/70; PULSE 101; RESP 16; TEMP 36; O2SAT 100
[2021-01-28] MEDS: ONDANSETRON INJ 4 MG/2 ML VIAL IV PUSH (00:33)
[2021-01-28] MEDS: HYDROmorphone HCL INJ (*CRX) 1 MG/ML SYR IV PUSH (00:38)
[2021-01-28 01:17] VITALS: PULSE 92; O2SAT 97
[2021-01-28] MEDS: CENTRAL LINE FLUSH 10 ML IV PUSH ×3 (05:11→21:39)
[2021-01-28] MEDS: FAT EMULSIONS IV 20% 250 ML 20.8 ML IVPB (05:12)
[2021-01-28] MEDS: IBUPROFEN IV 800 MG/200 ML 800 MG/200 ML BAG 400 MG IVPB (05:12)
[2021-01-28 05:35] LABS: Hematocrit 34.8 % (37.0-47.0); Hemoglobin 10.9 g/dL (12.0-15.0); Mean Corpuscular HGB Conc 31.3 g/dl (32-36); Mean Corpuscular Hemoglobin 27.1 pg (26-34); Mean Corpuscular Volume 86.6 fl (80-100); Mean Platelet Volume 10.3 fl (7.4-10.4); Platelet Count Result 206 k/mm3 (150-375); Red Blood Count 4.02 M/mm3 (4.2-5.4); Red Cell Distribution Width 14.2 % (11.5-14.5); White Blood Count 6.7 K/mm3 (4.5-10.0)
[2021-01-28 05:46] LABS: Alanine Aminotransferase 114 U/L (4-35); Albumin Level 3.8 g/dL (3.5-5.1); Alkaline Phosphatase 56 U/L (38-126); Anion Gap 7 mmol/L (8-16); Aspartate Amino Transferase 139 U/L (14-36); Bilirubin,Total 0.4 mg/dL (0.2-1.3); Blood Urea Nitrogen 12 mg/dL (7-17); Carbon Dioxide 24 mmol/L (22-30); Chloride 111 mmol/L (98-107); Estimated CRCL calculation 107 ml/min; Estimated Glomerular Filt Rate > 60; Glucose 115 mg/dL (65-110); Phosphorus 4.9 mg/dL (2.5-4.5); Potassium 4.1 mmol/L (3.4-5.0); Sodium 142 mmol/L (137-145)
[2021-01-28 06:00] VITALS: BP 104/65; PULSE 79; RESP 16; TEMP 36; O2SAT 98
[2021-01-28] MEDS: TOPIRAMATE 25 MG TABLET 50 MG PO (08:53)
[2021-01-28] MEDS: ENOXAPARIN 40 MG/0.4 ML SYRINGE SUB-Q (08:53)
[2021-01-28] MEDS: FAMOTIDINE 20 MG/2 ML VIAL IV PUSH (08:53)
[2021-01-28] MEDS: TOPIRAMATE 100 MG TABLET PO ×2 (08:53→18:53)
--- NOTE | 2021-01-28 09:45 | P.PNIM_ITS ---
Progress Note: A&P Assessment and Plan (1) Partial small bowel obstruction: Code(s): K56.600 - Partial intestinal obstruction, unspecified as to cause Status: Acute Assessment and Plan: * abdominal pain for 2 weeks which has become gradually worse and with associated vomiting prior to arrival. * Patient came to the emergency room on 01/04/2021 for similar abdominal pain with benign workup * At home she was on a liquid diet of mostly Ensure due to abdominal symptoms. * Last bowel movement was 01/19/2021 morning which she stated was ?normal?. * CT abdomen showed Interval development of mildly dilated jejunum and ileum with normal calibered mid small bowel, and development of some mesenteric tenting and inflammation. (01/19/21) * Abdominal xray: prominent amount of fecal material in the ascending colon and gaseous distention of multiple segments of the small and large bowel. (01/25/21) * SBFT found to have acute bowel obstruction and the patient was taken to surgery on 01/21/2021 for an adhesiolysis and resolution small-bowel obstruction. * POD #7 * Reports about same amount of gas * Continue with pain control * General surgery consulted and to manage thank you for your recommendation * bowel movement reported 01/27/2021 * NG tube removed 01/27/21 * diet advanced to full liquids (2) Fever: Code(s): R50.9 - Fever, unspecified Status: Acute Assessment and Plan: * seems to be resolved * Fever of 102F overnight 01/23/21. She denied feeling like she had any fevers and denied any new or worsening symptoms. * Blood cultures are negative to date * Urinalysis shows no signs of infection. Urine Culture did reflux reports no growth to date * CXR showed atelectasis vs pneumonia. Not having respiratory symptoms at this time. Could be from Atelectasis. 01/24/21 * Incentive spirometer ordered post op * WBC 5.1, normal differential. (01/25/21) (3) Abdominal pain: Qualifiers: Abdominal location: upper abdomen, unspecified Qualified Code(s): R10.10 - Upper abdominal pain, unspecified Code(s): R10.9 - Unspecified abdominal pain Status: Acute Assessment and Plan: * Supportive care * Pain control (4) Enteritis: Code(s): K52.9 - Noninfective gastroenteritis and colitis, unspecified Status: Acute Assessment and Plan: * Clinically no signs of infection * Continue to monitor * Consider antibiotics if changes (5) Migraine: Code(s): G43.909 - Migraine, unspecified, not intractable, without status migrainosus Status: Acute Assessment and Plan: * PO meds restarted * P.r.n. Triptans (6) Hypokalemia: Code(s): E87.6 - Hypokalemia Status: Acute Assessment and Plan: * Potassium has been very labile * Continue to trend labs * Current K is 4.1 today (7) Transaminitis: Code(s): R74.01 - Elevation of levels of liver transaminase levels Status: Acute Assessment and Plan: * Liver enzymes elevated * AST/ALT 139/114 * Continue to trend * Hep panel negative * RUQ ultra sound for tomorrow Subjective Date/time seen: 01/28/21 09:45 Interval history: Date of Service 01/25/21 13:35 Patient is a 51 year old female that is here for a small bowel obstruction that has now turned into an ileus. Patient stated that she is doing the best she can, and that her only complaint is herb
--- NOTE | 2021-01-28 09:45 | PM.IMPN ---
Progress Note: A&P Assessment and Plan (1) Partial small bowel obstruction: Code(s): K56.600 - Partial intestinal obstruction, unspecified as to cause Status: Acute Assessment and Plan: abdominal pain for 2 weeks which has become gradually worse and with associated vomiting prior to arrival. Patient came to the emergency room on 01/04/2021 for similar abdominal pain with benign workup At home she was on a liquid diet of mostly Ensure due to abdominal symptoms. Last bowel movement was 01/19/2021 morning which she stated was ?normal?. CT abdomen showed Interval development of mildly dilated jejunum and ileum with normal calibered mid small bowel, and development of some mesenteric tenting and inflammation. (01/19/21) Abdominal xray: prominent amount of fecal material in the ascending colon and gaseous distention of multiple segments of the small and large bowel. (01/25/21) SBFT found to have acute bowel obstruction and the patient was taken to surgery on 01/21/2021 for an adhesiolysis and resolution small-bowel obstruction. POD #7 Reports about same amount of gas Continue with pain control General surgery consulted and to manage thank you for your recommendation bowel movement reported 01/27/2021 NG tube removed 01/27/21 diet advanced to full liquids (2) Fever: Code(s): R50.9 - Fever, unspecified Status: Acute Assessment and Plan: seems to be resolved Fever of 102F overnight 01/23/21. She denied feeling like she had any fevers and denied any new or worsening symptoms. Blood cultures are negative to date Urinalysis shows no signs of infection. Urine Culture did reflux reports no growth to date CXR showed atelectasis vs pneumonia. Not having respiratory symptoms at this time. Could be from Atelectasis. 01/24/21 Incentive spirometer ordered post op WBC 5.1, normal differential. (01/25/21) (3) Abdominal pain: Qualifiers: Abdominal location: upper abdomen, unspecified Qualified Code(s): R10.10 - Upper abdominal pain, unspecified Code(s): R10.9 - Unspecified abdominal pain Status: Acute Assessment and Plan: Supportive care Pain control (4) Enteritis: Code(s): K52.9 - Noninfective gastroenteritis and colitis, unspecified Status: Acute Assessment and Plan: Clinically no signs of infection Continue to monitor Consider antibiotics if changes (5) Migraine: Code(s): G43.909 - Migraine, unspecified, not intractable, without status migrainosus Status: Acute Assessment and Plan: PO meds restarted P.r.n. Triptans (6) Hypokalemia: Code(s): E87.6 - Hypokalemia Status: Acute Assessment and Plan: Potassium has been very labile Continue to trend labs Current K is 4.1 today (7) Transaminitis: Code(s): R74.01 - Elevation of levels of liver transaminase levels Status: Acute Assessment and Plan: Liver enzymes elevated AST/ALT 139/114 Continue to trend Hep panel negative RUQ ultra sound for tomorrow Subjective Date/time seen: 01/28/21 09:45 Interval history: Date of Service 01/25/21 13:35 Patient is a 51 year old female that is here for a small bowel obstruction that has now turned into an ileus. Patient stated that she is doing the best she can, and that her only complaint is pain in her abdomen. She stated that it hurts pretty much over the transverse colon all the way down to the rectum, which is also tender with palpitation. She denies adequate pain control with the IV medications. She also stated that she has been doing better with walking, and that she did pass gas today. She also stated that she has been very active today which she stated has made her feel very tired, and she just wants to take a nap. She denies chest pain, shortness of breath, nausea, vomiting, fevers, sweats, or chills. Date of
[2021-01-28] MEDS: CENTRAL LINE FLUSH 20 ML IV PUSH (10:25)
--- NOTE | 2021-01-28 10:29 | PM.PNGS ---
Progress Note: A&P Assessment and Plan (1) Partial small bowel obstruction: Code(s): K56.600 - Partial intestinal obstruction, unspecified as to cause Status: Acute Assessment and Plan: bowel function has finally returned. Tolerating clear liquids. Will advance to full liquid diet. Increase ambulation. DC TPN. DC wound ilir and placed Steri-Strips. Making slow progress. Subjective Subjective Date/Time Seen: 01/28/21 10:29 Patient reports: bowel movement ( Many bowel movements after Gastrografin upper GI small-bowel follow-through.) and nausea Interval history: Mild nausea this morning. No vomiting. No significant abdominal pain. Complains of being tired. Review of Systems Review of Systems: All systems reviewed & are unremarkable except as noted in HPI and below Constitutional: Constitutional: Denies headache(s) Cardiovascular: Cardiovascular: Denies chest pain and Denies dyspnea Respiratory: Respiratory: Denies cough and Denies dyspnea Neurologic: Denies confusion and Denies headache(s) Exam Const: General: comfortable and no acute distress; No confusion Orientation/consciousness: patient oriented x3 and No confusion GI: Inspection: non-distended and incision ( Clean dry and healing well) GI Palp: Yes Soft to palpation, Yes Tenderness to palpation present (GI), No Guarding due to palpation present (GI) and No Rebound tenderness present Auscultation: normal bowel sounds Neuro: General: patient oriented x3, no focal motor deficits and No confusion Extrem: General: no calf tenderness and no edema Psych: Affect: normal affect Insight: Good insight present (Psych) Judgement: Good judgement present (Psych) Objective Data Vital Signs Vital Signs: Vital Signs - 24 hr 01/27/21 14:00 01/27/21 20:00 01/27/21 21:58 Temperature 36.1 C L 36.0 C L Pulse Rate 94 92 101 H Respiratory Rate 18 16 16 Blood Pressure 128/74 131/70 Pulse Oximetry 99 97 100 01/28/21 01:17 01/28/21 06:00 Temperature 36.0 C L Pulse Rate 92 79 Respiratory Rate 16 Blood Pressure 104/65 Pulse Oximetry 97 98 Intake/Output Intake/Output: Intake & Output 01/25/21 01/26/21 01/27/21 01/28/21 23:59 23:59 23:59 23:59 Intake Total 900 3810 2805 1210 Output Total 1550 200 Balance -650 3610 2805 1210 Meds/Results Medications: Active Medications Generic Name Dose Route Start Last Admin Trade Name Freq PRN Reason Stop Dose Admin Acetaminophen 500 mg 01/28/21 10:25 Acetaminophen 500 Mg Tablet PO Q6H PRN Mild Pain (1-3) or Fever Hydrocodone Bitart/Acetaminophen 1 tab 01/28/21 10:25 Hydrocodone/Acetaminophen (*Crx) 5-325 Mg Tablet PO Q4H PRN Pain Rated 4-6 Hydrocodone Bitart/Acetaminophen 1 tab 01/28/21 10:25 Hydrocodone/Acetaminophen (*Crx) 7.5-325 Mg Tablet PO Q4H PRN Pain Rated 7-10 Enoxaparin Sodium 40 mg 01/20/21 09:00 01/28/21 08:53 Enoxaparin 40 Mg/0.4 Ml Syringe SUB-Q 40 mg DAILY RUBEN Administration Famotidine 20 mg 01/28/21 21:00 Famotidine 20 Mg Tablet PO Q12HR RUBEN Hydromorphone HCl 0.5 mg 01/22/21 12:34 01/26/21 23:19 Hydromorphone Hcl Inj (*Crx) 1 Mg/Ml Syr IV PUSH 0.5 mg Q2H PRN Administration Pain Rated 4-6 Hydromorphone HCl 1 mg 01/22/21 12:34 01/28/21 00:38 Hydromorphone Hcl Inj (*Crx) 1 Mg/Ml Syr IV PUSH 1 mg Q2H PRN Administration Pain Rated 7-10 Dextrose 1,000 mls @ 50 mls/hr 01/24/21 14:05 Dextrose 10% IV CONT .Q20H PRN if PN is interrupted Lorazepam 1 mg 01/20/21 02:40 Lorazepam Inj (*Crx) 2 Mg/Ml Vial IV PUSH Q6H PRN Anxiety, pain. Naloxone HCl 0.1 mg 01/21/21 18:57 Naloxone Hcl 0.4 Mg/Ml Vial IV PUSH Q2M PRN Opiate Reversal Rimegepant [Nurtec 75 mg 01/21/21 12:17 Odt] 75 Mg Tablet, PO 02/20/21 12:16 Disintegrating Is DAILY PRN Non Formulary Med. Headache Can Patient Use Nortriptyline HCl 75 mg
--- NOTE | 2021-01-28 11:03 | PCNFU ---
Nutrition Follow-Up Complete: Altered GI function as related to partial bowel obstruction as evidenced by NPO/TPN Goal: Meet estimated nutritional needs Patient is progressing towards goal. We will continue current goal. Pt current nutrition is Full Liquids. Last recorded weight is 90.2 kg, down from 95.4 kg on admit. Bowel Motility:+BM reported 01/27 Labs Reviewed:PO4 4.9,Cr 0.6,Glu 115,Hct 34.8,Hgb 10.9 Meds Noted:Dilaudid, Zofran,Topamax,Lovenox. Additional Notes: Nutrition follow up. Patient seen today, she reports having BM last night. She was tolerating clear liquid tray today. Diet order has been advanced to full liquids. Clinimix E and Lipids have been discontinued. Recommend advancing diet as tolerated per MD orders. Monitoring: Will monitor every 3 days.
[2021-01-28 12:28] LABS: Hepatitis B Surface Antigen Negative (Negative)
[2021-01-28 12:44] LABS: HAV RESULT Negative (Negative); Hepatitis B Core IgM Result Negative (Negative)
[2021-01-28 12:45] LABS: Hepatitis C Virus Antibody Negative (Negative)
[2021-01-28 14:33] VITALS: BP 112/71; PULSE 80; RESP 14; TEMP 36.7; O2SAT 99
[2021-01-28 20:40] VITALS: PULSE 94; RESP 18; O2SAT 100
[2021-01-28] MEDS: FAMOTIDINE 20 MG TABLET PO (21:38)
[2021-01-28] MEDS: NORTRIPTYLINE HCL 25 MG CAPSULE 75 MG PO (21:39)
[2021-01-28 22:00] VITALS: BP 133/66; PULSE 94; RESP 18; TEMP 36.3; O2SAT 100
[2021-01-29] MEDS: CENTRAL LINE FLUSH 10 ML IV PUSH (05:29)
[2021-01-29 05:57] LABS: Hematocrit 35.5 % (37.0-47.0); Hemoglobin 11.4 g/dL (12.0-15.0); Mean Corpuscular HGB Conc 32.1 g/dl (32-36); Mean Corpuscular Hemoglobin 27.6 pg (26-34); Mean Platelet Volume 10.3 fl (7.4-10.4); Platelet Count Result 207 k/mm3 (150-375); Red Blood Count 4.13 M/mm3 (4.2-5.4); Red Cell Distribution Width 14.3 % (11.5-14.5); White Blood Count 5.8 K/mm3 (4.5-10.0)
[2021-01-29 06:00] VITALS: BP 116/60; PULSE 92; RESP 18; TEMP 36.6; O2SAT 98
[2021-01-29 06:11] LABS: Anion Gap 11 mmol/L (8-16); Blood Urea Nitrogen 9 mg/dL (7-17); Calcium 9.7 mg/dL (8.4-10.2); Carbon Dioxide 22 mmol/L (22-30); Chloride 108 mmol/L (98-107); Estimated CRCL calculation 93 ml/min; Estimated Glomerular Filt Rate > 60; Glucose 93 mg/dL (65-110); Potassium 3.5 mmol/L (3.4-5.0); Sodium 141 mmol/L (137-145)
[2021-01-29 09:16] LABS: Alanine Aminotransferase 188 U/L (4-35); Albumin Level 4.1 g/dL (3.5-5.1); Alkaline Phosphatase 73 U/L (38-126); Aspartate Amino Transferase 141 U/L (14-36); Bilirubin,Total 0.6 mg/dL (0.2-1.3)
[2021-01-29] MEDS: FAMOTIDINE 20 MG TABLET PO (10:32)
[2021-01-29] MEDS: TOPIRAMATE 100 MG TABLET PO (10:32)
[2021-01-29] MEDS: TOPIRAMATE 25 MG TABLET 50 MG PO (10:32)
[2021-01-29] MEDS: POTASSIUM CHLORIDE 20 MEQ TABLET 40 MEQ PO (10:32)
[2021-01-29] MEDS: ENOXAPARIN 40 MG/0.4 ML SYRINGE SUB-Q (10:33)
--- NOTE | 2021-01-29 11:27 | PM.PNGS ---
Progress Note: A&P Assessment and Plan (1) Partial small bowel obstruction: Code(s): K56.600 - Partial intestinal obstruction, unspecified as to cause Status: Acute Assessment and Plan: Doing well. Bowel function has returned. Patient very comfortable on occasional oral analgesics. Discussed with hospitalist, Abad Dickerson,. Will go ahead and discharge today on her regular diet. Instructions were given. I will see her in the office in 2 weeks. (2) Hypokalemia: Code(s): E87.6 - Hypokalemia Status: Acute Assessment and Plan: Prolonged period of NG suction and gastric acid loss is resulting in hypokalemia. Potassium 3.5 today. Will supplement for 1 week after discharge. This should be adequate. Subjective Subjective Date/Time Seen: 01/29/21 11:27 Patient reports: feels better and pain is less Interval history: Would like to go home Exam GI: Inspection: non-distended and incision ( healing well, dry and intact, Steri-Strips in place.) GI Palp: Yes Soft to palpation Auscultation: normal bowel sounds Objective Data Vital Signs Vital Signs: Vital Signs - 24 hr 01/28/21 14:33 01/28/21 20:40 01/28/21 22:00 Temperature 36.7 C 36.3 C L Pulse Rate 80 94 94 Respiratory Rate 14 18 18 Blood Pressure 112/71 133/66 Pulse Oximetry 99 100 100 01/29/21 06:00 Temperature 36.6 C Pulse Rate 92 Respiratory Rate 18 Blood Pressure 116/60 Pulse Oximetry 98 Intake/Output Intake/Output: Intake & Output 01/26/21 01/27/21 01/28/21 01/29/21 23:59 23:59 23:59 23:59 Intake Total 3810 2805 3760 150 Output Total 200 Balance 3610 2805 3760 150 Meds/Results Medications: Active Medications Generic Name Dose Route Start Last Admin Trade Name Freq PRN Reason Stop Dose Admin Acetaminophen 500 mg 01/28/21 10:25 Acetaminophen 500 Mg Tablet PO Q6H PRN Mild Pain (1-3) or Fever Hydrocodone Bitart/Acetaminophen 1 tab 01/28/21 10:25 Hydrocodone/Acetaminophen (*Crx) 5-325 Mg Tablet PO Q4H PRN Pain Rated 4-6 Hydrocodone Bitart/Acetaminophen 1 tab 01/28/21 10:25 Hydrocodone/Acetaminophen (*Crx) 7.5-325 Mg Tablet PO Q4H PRN Pain Rated 7-10 Enoxaparin Sodium 40 mg 01/20/21 09:00 01/29/21 10:33 Enoxaparin 40 Mg/0.4 Ml Syringe SUB-Q 40 mg DAILY RUBEN Administration Famotidine 20 mg 01/28/21 21:00 01/29/21 10:32 Famotidine 20 Mg Tablet PO 20 mg Q12HR RUBEN Administration Hydromorphone HCl 0.5 mg 01/22/21 12:34 01/26/21 23:19 Hydromorphone Hcl Inj (*Crx) 1 Mg/Ml Syr IV PUSH 0.5 mg Q2H PRN Administration Pain Rated 4-6 Hydromorphone HCl 1 mg 01/22/21 12:34 01/28/21 00:38 Hydromorphone Hcl Inj (*Crx) 1 Mg/Ml Syr IV PUSH 1 mg Q2H PRN Administration Pain Rated 7-10 Dextrose 1,000 mls @ 50 mls/hr 01/24/21 14:05 Dextrose 10% IV CONT .Q20H PRN if PN is interrupted Lorazepam 1 mg 01/20/21 02:40 Lorazepam Inj (*Crx) 2 Mg/Ml Vial IV PUSH Q6H PRN Anxiety, pain. Naloxone HCl 0.1 mg 01/21/21 18:57 Naloxone Hcl 0.4 Mg/Ml Vial IV PUSH Q2M PRN Opiate Reversal Rimegepant [Nurtec 75 mg 01/21/21 12:17 Odt] 75 Mg Tablet, PO 02/20/21 12:16 Disintegrating Is DAILY PRN Non Formulary Med. Headache Can Patient Use Nortriptyline HCl 75 mg 01/21/21 21:00 01/28/21 21:39 Nortriptyline Hcl 25 Mg Capsule PO 75 mg HS RUBEN Administration Ondansetron HCl 4 mg 01/19/21 18:38 01/28/21 00:33 Ondansetron Inj 4 Mg/2 Ml Vial IV PUSH 4 mg Q4H PRN Administration Nausea Potassium Chloride 40 meq 01/29/21 17:00 Potassium Chloride 20 Meq Tablet.Er PO BIDWM RUBEN Sodium Chloride 10 ml 01/25/21 06:00 01/29/21 05:29 Central Line Flush IV PUSH 10 ml Q8HR RUBEN Administration Sodium Chloride 10 ml 01/25/21 02:41 01/27/21 16:18 Central Line Flush IV PUSH 10 ml PRN PRN Administration with TPN bag changes [place]
--- NOTE | 2021-01-29 11:37 | P.DS_ITS ---
DS: Admitting Diagnosis Discharge Date Date of Service: 01/29/21 Admitting Diagnosis Small bowel obstruction DS: Discharge Diagnosis Discharge Diagnosis (1) Partial small bowel obstruction: Code(s): K56.600 - Partial intestinal obstruction, unspecified as to cause Status: Acute Assessment and Plan: * abdominal pain for 2 weeks which has become gradually worse and with associated vomiting prior to arrival. * Patient came to the emergency room on 01/04/2021 for similar abdominal pain with benign workup * At home she was on a liquid diet of mostly Ensure due to abdominal symptoms. * Last bowel movement was 01/19/2021 morning which she stated was ?normal?. * CT abdomen showed Interval development of mildly dilated jejunum and ileum with normal calibered mid small bowel, and development of some mesenteric tenting and inflammation. (01/19/21) * Abdominal xray: prominent amount of fecal material in the ascending colon and gaseous distention of multiple segments of the small and large bowel. (01/25/21) * SBFT found to have acute bowel obstruction and the patient was taken to [facility] on 01/21/2021 for an adhesiolysis and resolution small-bowel obstruction. * POD #8 * Reports about same amount of gas * Continue with pain control * General surgery consulted and to manage thank you for your recommendation * bowel movement reported 01/27/2021 * NG tube removed 01/27/21 * diet advanced to full liquids (2) Fever: Code(s): R50.9 - Fever, unspecified Status: Acute Assessment and Plan: * seems to be resolved * Fever of 102F overnight 01/23/21. She denied feeling like she had any fevers and denied any new or worsening symptoms. * Blood cultures are negative to date * Urinalysis shows no signs of infection. Urine Culture did reflux reports no growth to date * CXR showed atelectasis vs pneumonia. Not having respiratory symptoms at this time. Could be from Atelectasis. 01/24/21 * Incentive spirometer ordered post op * WBC 5.8, normal differential. (01/29/21) (3) Abdominal pain: Qualifiers: Abdominal location: upper abdomen, unspecified Qualified Code(s): R10.10 - Upper abdominal pain, unspecified Code(s): R10.9 - Unspecified abdominal pain Status: Acute Assessment and Plan: * Supportive care * Pain control (4) Enteritis: Code(s): K52.9 - Noninfective gastroenteritis and colitis, unspecified Status: Acute Assessment and Plan: * Clinically no signs of infection * Continue to monitor * Consider antibiotics if changes (5) Migraine: Code(s): G43.909 - Migraine, unspecified, not intractable, without status migrainosus Status: Acute Assessment and Plan: * PO meds restarted * P.r.n. Triptans (6) Hypokalemia: Code(s): E87.6 - Hypokalemia Status: Acute Assessment and Plan: * Potassium has been very labile * Continue to trend labs * Current K is 3.5 today (7) Transaminitis: Code(s): R74.01 - Elevation of levels of liver transaminase levels Status: Acute Assessment and Plan: * Liver enzymes elevated * AST/ALT 141/188 * Continue to trend * Hep panel negative * RUQ ultra sound: completed and pending report DS: Summary Hospital Course Hospital Course: Patient is a 51 year old female with a past medical history of migraines, status post hysterectomy wh
--- NOTE | 2021-01-29 11:37 | PM.DS ---
DS: Admitting Diagnosis Discharge Date Date of Service: 01/29/21 Admitting Diagnosis Small bowel obstruction DS: Discharge Diagnosis Discharge Diagnosis (1) Partial small bowel obstruction: Code(s): K56.600 - Partial intestinal obstruction, unspecified as to cause Status: Acute Assessment and Plan: abdominal pain for 2 weeks which has become gradually worse and with associated vomiting prior to arrival. Patient came to the emergency room on 01/04/2021 for similar abdominal pain with benign workup At home she was on a liquid diet of mostly Ensure due to abdominal symptoms. Last bowel movement was 01/19/2021 morning which she stated was ?normal?. CT abdomen showed Interval development of mildly dilated jejunum and ileum with normal calibered mid small bowel, and development of some mesenteric tenting and inflammation. (01/19/21) Abdominal xray: prominent amount of fecal material in the ascending colon and gaseous distention of multiple segments of the small and large bowel. (01/25/21) SBFT found to have acute bowel obstruction and the patient was taken to surgery on 01/21/2021 for an adhesiolysis and resolution small-bowel obstruction. POD #8 Reports about same amount of gas Continue with pain control General surgery consulted and to manage thank you for your recommendation bowel movement reported 01/27/2021 NG tube removed 01/27/21 diet advanced to full liquids (2) Fever: Code(s): R50.9 - Fever, unspecified Status: Acute Assessment and Plan: seems to be resolved Fever of 102F overnight 01/23/21. She denied feeling like she had any fevers and denied any new or worsening symptoms. Blood cultures are negative to date Urinalysis shows no signs of infection. Urine Culture did reflux reports no growth to date CXR showed atelectasis vs pneumonia. Not having respiratory symptoms at this time. Could be from Atelectasis. 01/24/21 Incentive spirometer ordered post op WBC 5.8, normal differential. (01/29/21) (3) Abdominal pain: Qualifiers: Abdominal location: upper abdomen, unspecified Qualified Code(s): R10.10 - Upper abdominal pain, unspecified Code(s): R10.9 - Unspecified abdominal pain Status: Acute Assessment and Plan: Supportive care Pain control (4) Enteritis: Code(s): K52.9 - Noninfective gastroenteritis and colitis, unspecified Status: Acute Assessment and Plan: Clinically no signs of infection Continue to monitor Consider antibiotics if changes (5) Migraine: Code(s): G43.909 - Migraine, unspecified, not intractable, without status migrainosus Status: Acute Assessment and Plan: PO meds restarted P.r.n. Triptans (6) Hypokalemia: Code(s): E87.6 - Hypokalemia Status: Acute Assessment and Plan: Potassium has been very labile Continue to trend labs Current K is 3.5 today (7) Transaminitis: Code(s): R74.01 - Elevation of levels of liver transaminase levels Status: Acute Assessment and Plan: Liver enzymes elevated AST/ALT 141/188 Continue to trend Hep panel negative RUQ ultra sound: completed and pending report DS: Summary Hospital Course Hospital Course: Patient is a 51 year old female with a past medical history of migraines, status post hysterectomy who originally presented to the ED with complaints of abdominal pain for the prior two weeks. Ct abdomen and pelvis showed partial bowel obstruction. General surgery was consulted at that time. An NG tube was also placed at that time and hooked up to low intermittent suction. On 01/21/21 a small bowel follow through was performed and a bowel obstruction was identified at that time, and she was taken for an emergent laparotomy surgery by Dr. Reed. She was then placed NPO with the NG tube in place to suction. TPN and lipids were started. Ava
== END 2021-01-29 14:00 | disposition home or self-care (01) | DRG 336 ==
LOC: ANHED 18:22 → ANH3MEDSUR 01-20 07:05
PROVIDERS: Emergency Medicine; Nurse Practitioner Family; Physician Assistant; Surgery; Admitting Provider Family Medicine; Emergency Provider Emergency Medicine; Visit Provider Nurse Practitioner
PROC: 0DN80ZZ Release Small Intestine, Open Approach (ICD-10-PCS; CPT 49000; principal; 2021-01-21 16:00)
DX: K56.51 Intestinal adhesions [bands], with partial obstruction (principal); Q43.3 Congenital malformations of intestinal fixation; J98.11 Atelectasis; K52.9 Noninfective gastroenteritis and colitis, unspecified; G43.909 Migraine, unspecified, not intractable, without status migrainosus; E87.6 Hypokalemia; R74.01 Elevation of levels of liver transaminase levels; G47.33 Obstructive sleep apnea (adult) (pediatric); E66.9 Obesity, unspecified; Z68.32 Body mass index [BMI] 32.0-32.9, adult; Z90.710 Acquired absence of both cervix and uterus; Z90.49 Acquired absence of other specified parts of digestive tract
CPT/HCPCS: 36415; 36569; 71046; 74018; 74177; 74250; 76705; 80048; 80053; 80074; 80076; 81001; 82948; 83690; 83735; 84100; 84132; 84466; 84478; 85025; 85027; 85730; 87040; 87086; 87088; 96361; 96374; 96375; 99285; A9270; C1751; J0131; J0330; J0690; J1100; J1170; J1200; J1650; J1741; J1885; J2250; J2270; J2405; J2704; J3010; J3030; J3480; J7030; J7120; Q9967

== ENCOUNTER 2021-04-01 10:04 | Emergency (ER) | payer BC, SELFPAY ==
--- NOTE | 2021-04-01 10:10 | ED.URI ---
HPI - URI/Sore Throat General Chief Complaint: Upper Respiratory Infection Stated Complaint: sinus issues/mucus/sore throat/rockwell Time Seen by Provider: 04/01/21 10:10 Source: patient Mode of arrival: ambulatory Limitations: no limitations History of Present Illness HPI Narrative: Nani Jeter is a 51 yo female with a PMH of migraine headache, [facility] with symptoms of sinus congestion and what she believes to be an infection x7 days. Her son has the same thing and was seen by his PCP and started on amoxicillin. Patient has used Mucinex without relief, no fever nausea vomiting Related Data Home Medications Medication Instructions Recorded Confirmed Nurtec ODT 75 mg PO DAILY PRN 01/19/21 03/25/21 nortriptyline 75 mg PO HS 01/19/21 03/25/21 sumatriptan succinate 6 mg SUBCUT ONCE PRN MDD 2/DAY 4/WK 01/19/21 03/25/21 topiramate 100 mg PO QPM 01/19/21 03/25/21 topiramate 150 mg PO QAM 01/19/21 03/25/21 cholecalciferol (vitamin D3) 10,000 unit PO DAILY 03/25/21 03/25/21 [Vitamin D3] galcanezumab-gnlm [Emgality Pen] 120 mg SUBCUT MONTHLY 03/25/21 03/25/21 ondansetron HCl 4 mg PO Q6H PRN 03/25/21 03/25/21 tramadol 50 mg PO Q8H PRN 03/25/21 03/25/21 Allergies Allergy/AdvReac Type Severity Reaction Status Date / Time Penicillins Allergy Unknown Hives Verified 03/25/21 13:51 phenytoin Allergy Unknown Hives Verified 03/25/21 13:51 Sulfa (Sulfonamide Allergy Unknown HIVES Verified 03/25/21 13:51 Antibiotics) Review of Systems Review of Systems: CONSTITUTIONAL: Denies fever, chills, sweats. EYES: Denies visual changes, redness, discharge. ENT: Denies rhinorrhea, congestion, sore throat, otalgia. Sinus congestion believed to be an infection CARDIOVASCULAR: Denies chest pain, palpitations, edema. RESPIRATORY: Denies dyspnea, wheezing, cough GASTROINTESTINAL: Denies abdominal pain, nausea, vomiting, diarrhea. GENITOURINARY: Denies dysuria, hematuria, abnormal discharge SKIN: Denies rash or itching. NEUROLOGIC: Denies numbness, or focal weakness. PSYCHIATRIC: Denies anxiety or depression. [facility] Past Medical History Medical History History of migraine GUANAKO (obstructive sleep apnea) Surgical History Surgical History History of colonoscopy History of laparoscopic appendectomy History of laparoscopy-assisted vaginal hysterectomy Family History Family History Other No pertinent family history Social History Social History Smoking status: Never smoker Second hand tobacco smoke exposure: No Alcohol intake: never Drinks per week: 0 Substance use: never Substance use type: does not use Spiritual care concerns: No Comments At time of signature, I agree with nursing past medical, surgical, social and family history. There is no relevant family history pertinent to the presenting complaint. Exam Narrative: GENERAL: This is a well-nourished, well-developed patient, in mild distress. HEAD: normocephalic, atraumatic. EYES: Sclera clear/white. Vision is grossly intact. EARS: External ears normal, auditory canals clear and without drainage, TMs normal without perforation. Hearing grossly intact. NOSE: External nose normal with nasal discharge, nares with redness, has rhinorrhea. THROAT: Mucous membranes moist, posterior pharynx mild erythema NECK: Neck supple, non-tender CARDIOVASCULAR: Regular rate and rhythm without murmurs, gallops, or rubs. RESPIRATORY: Clear to auscultation. Breath sounds equal bilaterally. No wheezes, rales, or rhonchi. GASTROINTESTINAL: Abdomen soft, SKIN: warm, intact with no suspicious lesions or rash, good texture and turgor. NEURO: awake, alert, and oriented to person, place and time. There were no obvious focal neurologic abnormalities. Steady gait E
[2021-04-01 10:14] VITALS: BP 142/73; PULSE 106; RESP 16; TEMP 35.9; O2SAT 100
== END 2021-04-01 10:29 | disposition home or self-care (01) ==
PROVIDERS: Emergency Provider Nurse Practitioner
DX: J01.11 Acute recurrent frontal sinusitis (principal); G47.33 Obstructive sleep apnea (adult) (pediatric)
CPT/HCPCS: 99213; G0463

== ENCOUNTER 2021-04-07 00:29 | Day surgery (SDC) | payer BC, SELFPAY ==
[2021-03-25 13:59] VITALS: BMI 31.6
[2021-04-07 06:37] VITALS: BP 141/69; PULSE 98; RESP 18; TEMP 36.4; O2SAT 100
--- NOTE | 2021-04-07 06:47 | WPDANESEPPF ---
Anes - Initial Pre Proc Eval Procedure: Operation Date: 04/07/21 08:00 Proposed Procedures p Screening Colonoscopy - Parveen Arechiga DO Date/Time: 04/07/21 06:47 Surgeon: Parveen Arechiga DO Pre Op Diagnosis: neoplasm screening Patient Data Age: 51 Gender: F Height: 1.68 m Weight: 89.3 kg Last Vital Signs Temp 36.4 C L 04/07/21 06:37 Pulse 98 04/07/21 06:37 Resp 18 04/07/21 06:37 BP 141/69 H 04/07/21 06:37 Pulse Ox 100 04/07/21 06:37 Allergies Allergy/AdvReac Type Severity Reaction Status Date / Time Penicillins Allergy Unknown Hives Verified 04/07/21 06:22 phenytoin Allergy Unknown Hives Verified 04/07/21 06:22 Sulfa (Sulfonamide Allergy Unknown HIVES Verified 04/07/21 06:22 Antibiotics) Home Medications Medication Instructions Recorded Confirmed Type Nurtec ODT 75 mg PO DAILY PRN 01/19/21 03/25/21 History nortriptyline 75 mg PO HS 01/19/21 03/25/21 History sumatriptan succinate 6 mg SUBCUT ONCE PRN MDD 2/DAY 4/WK 01/19/21 03/25/21 History topiramate 100 mg PO QPM 01/19/21 03/25/21 History topiramate 150 mg PO QAM 01/19/21 03/25/21 History cholecalciferol (vitamin D3) 10,000 unit PO DAILY 03/25/21 03/25/21 History [Vitamin D3] galcanezumab-gnlm [Emgality Pen] 120 mg SUBCUT MONTHLY 03/25/21 03/25/21 History ondansetron HCl 4 mg PO Q6H PRN 03/25/21 03/25/21 History tramadol 50 mg PO Q8H PRN 03/25/21 03/25/21 History azithromycin [Zithromax Z-Manjit] See Rx Instructions .ROUTE 04/01/21 04/07/21 Rx .COMPLEX #6 tablet prednisone 40 mg PO DAILY #10 tablet 04/01/21 04/07/21 Rx Patient hx anesthesia problems: none Family hx anesthesia problems: none Results Review: All pre-operative results and documents have been reviewed as part of the pre-operative evaluation. [facility] Past Medical History Medical History History of migraine GUANAKO (obstructive sleep apnea) Surgical History Surgical History History of colonoscopy History of laparoscopic appendectomy History of laparoscopy-assisted vaginal hysterectomy Family History Family History Other No pertinent family history Social History Social History Smoking status: Never smoker Second hand tobacco smoke exposure: No Alcohol intake: never Drinks per week: 0 Substance use: never Substance use type: does not use Living arrangements: with family Spiritual care concerns: No Anes - Eval Final PreProcedure Day of Procedure 04/07/21 06:47 Patient weight: obese Heart: regular rate and rhythm Lungs: clear to auscultation and normal air movement Airway: Mallampati scale class II Neurological: alert and oriented Last oral intake: >/= 8 hours ASA classification: III Emergent: no Anesthetic plan: proceed Anesthesia type and monitoring: general GIVS and standard monitoring Results Review: All pre-operative results and documents have been reviewed as part of the pre-operative evaluation. Informed Consent: The patient's anesthetic plan and its attendant risks and benefits were discussed with the patient/family/POA. Questions were solicited and answers provided to the satisfaction of the patient/family/POA.
[2021-04-07] MEDS: LACTATED RINGERS 1,000 ML 150 ML IV CONT ×2 (06:53→09:09)
--- NOTE | 2021-04-07 08:09 | PM.IMHP ---
H&P: HPI History of Present Illness Date/Time: 04/07/21 08:09 Chief Complaint: blood in stool Narrative: this is a 51-year-old woman who presents for colonoscopy. She last had a colonoscopy about 6 years ago. She denies any family history of colon cancer. She has noted blood when wiping recently. She has a recent history of exploratory laparotomy with adhesiolysis for a small bowel resection. She has also had an appendectomy. Review of Systems Review of Systems: All systems reviewed & are unremarkable except as noted in HPI and below Constitutional: Constitutional: Denies chills, Denies fever(s), Denies headache(s) and Denies weight loss Eyes: Eyes: Denies change in vision ENT: Denies dizziness, Denies headache(s), Denies neck mass and Denies throat swelling Cardiovascular: Cardiovascular: Denies chest pain, Denies lightheadedness and Denies dyspnea Respiratory: Respiratory: Denies cough, Denies dyspnea and Denies wheezing Gastrointestinal: Gastrointestinal: Denies abdominal pain, Denies change in bowel habits, Denies nausea and Denies vomiting Genitourinary: Genitourinary: Denies hematuria and Denies dysuria Musculoskeletal: Musculoskeletal: Reports as per HPI Integumentary/Breasts: Skin/Breast: Reports as per HPI Neurologic: Denies dizziness and Denies headache(s) Allergic/Immunologic: Allergic/Immunologic: Denies throat swelling and Denies wheezing PMFSH Past Medical History Medical History History of migraine GUANAKO (obstructive sleep apnea) Surgical History Surgical History History of colonoscopy History of laparoscopic appendectomy History of laparoscopy-assisted vaginal hysterectomy Family History Family History Other No pertinent family history Social History Social History Smoking status: Never smoker Second hand tobacco smoke exposure: No Alcohol intake: never Drinks per week: 0 Substance use: never Substance use type: does not use Living arrangements: with family Spiritual care concerns: No Meds Home Medications and Allergies Home Medications Medication Instructions Recorded Confirmed Type Nurtec ODT 75 mg PO DAILY PRN 01/19/21 03/25/21 History nortriptyline 75 mg PO HS 01/19/21 03/25/21 History sumatriptan succinate 6 mg SUBCUT ONCE PRN MDD 2/DAY 4/WK 01/19/21 03/25/21 History topiramate 100 mg PO QPM 01/19/21 03/25/21 History topiramate 150 mg PO QAM 01/19/21 03/25/21 History cholecalciferol (vitamin D3) 10,000 unit PO DAILY 03/25/21 03/25/21 History [Vitamin D3] galcanezumab-gnlm [Emgality Pen] 120 mg SUBCUT MONTHLY 03/25/21 03/25/21 History ondansetron HCl 4 mg PO Q6H PRN 03/25/21 03/25/21 History tramadol 50 mg PO Q8H PRN 03/25/21 03/25/21 History azithromycin [Zithromax Z-Manjit] See Rx Instructions .ROUTE 04/01/21 04/07/21 Rx .COMPLEX #6 tablet prednisone 40 mg PO DAILY #10 tablet 04/01/21 04/07/21 Rx Allergies Allergy/AdvReac Type Severity Reaction Status Date / Time Penicillins Allergy Unknown Hives Verified 04/07/21 06:22 phenytoin Allergy Unknown Hives Verified 04/07/21 06:22 Sulfa (Sulfonamide Allergy Unknown HIVES Verified 04/07/21 06:22 Antibiotics) Vital Signs Vital Signs - 24 hr 04/07/21 06:37 Temperature 36.4 C L Pulse Rate 98 Respiratory Rate 18 Blood Pressure 141/69 H Pulse Oximetry 100 Exam Const: General: no acute distress and alert Orientation/consciousness: patient oriented x3 HENMT: Head: normocephalic and atraumatic Ears: hearing grossly normal bilaterally General nose exam: Normal nares present Mouth: Yes Normal oral and palatal mucosa present Eyes: Periorbital: periorbital findings normal Sclera: sclerae normal EOM: EOMs intact bilaterally Neck: Neck: normal visual inspection, no ly
[2021-04-07 09:12] VITALS: BP 140/78; PULSE 87; RESP 18; O2SAT 100
[2021-04-07 09:22] VITALS: BP 149/72; PULSE 78; RESP 18; O2SAT 100
[2021-04-07 09:32] VITALS: BP 153/80; PULSE 76; RESP 20; O2SAT 100
== END 2021-04-07 09:54 | disposition home or self-care (01) ==
PROVIDERS: Visit Provider Surgery
PROC: 0DJD8ZZ Inspection of Lower Intestinal Tract, Via Natural or Artificial Opening Endoscopic (ICD-10-PCS; CPT 45378; principal; 2021-04-07 08:00)
DX: K62.5 Hemorrhage of anus and rectum (principal); G47.33 Obstructive sleep apnea (adult) (pediatric); E66.9 Obesity, unspecified; Z68.31 Body mass index [BMI] 31.0-31.9, adult
CPT/HCPCS: 45378; J2704; J7120

== ENCOUNTER 2022-04-17 16:55 | Emergency (ER) | payer BC, SELFPAY ==
[2022-04-17 17:04] VITALS: BP 133/77; PULSE 89; RESP 16; TEMP 36.6; O2SAT 100
--- NOTE | 2022-04-17 17:15 | ED.URI ---
HPI - URI/Sore Throat General Chief Complaint: Upper Respiratory Infection Stated Complaint: cough, bodyaches,runny nose Time Seen by Provider: 04/17/22 17:15 Source: patient and RN notes reviewed Mode of arrival: ambulatory Limitations: no limitations History of Present Illness HPI Narrative: 52-year-old female presents with concern for nasal congestion, cough, sinus drainage and pressure 2 and half weeks. Reports Sudafed is not helping. Reports pressure around her eyes, the Ten of her mouth, teeth MD elicited complaint: cough and nasal congestion Related Data Home Medications Medication Instructions Recorded Confirmed nortriptyline 50 mg capsule 75 mg PO HS 01/19/21 03/25/21 rimegepant 75 mg disintegrating 75 mg PO DAILY PRN Headache 01/19/21 03/25/21 tablet (Nurtec ODT) sumatriptan succinate 6 mg/0.5 mL 6 mg subcut ONCE PRN Headache 01/19/21 03/25/21 subcutaneous pen injector topiramate 100 mg tablet 100 mg PO QPM 01/19/21 03/25/21 topiramate 100 mg tablet 150 mg PO QAM 01/19/21 03/25/21 cholecalciferol (vitamin D3) 125 10,000 unit PO DAILY 03/25/21 03/25/21 mcg (5,000 unit) tablet (Vitamin D3) galcanezumab-gnlm 120 mg/mL 120 mg subcut MONTHLY 03/25/21 03/25/21 subcutaneous pen injector (Emgality Pen) ondansetron HCl 4 mg tablet 4 mg PO Q6H PRN Nausea 03/25/21 03/25/21 tramadol 50 mg tablet 50 mg PO Q8H PRN Pain 03/25/21 03/25/21 Allergies Allergy/AdvReac Type Severity Reaction Status Date / Time Penicillins Allergy Unknown Hives Verified 04/17/22 17:18 phenytoin Allergy Unknown Hives Verified 04/17/22 17:18 Sulfa (Sulfonamide Allergy Unknown HIVES Verified 04/17/22 17:18 Antibiotics) Review of Systems Review of Systems: CONSTITUTIONAL: Reports malaise EYES: Denies visual changes, redness, or discharge. ENT: Reports rhinorrhea, congestion, sinus pain, otalgia CARDIOVASCULAR: Denies chest pain, palpitations, or edema. RESPIRATORY: Reports cough. Denies dyspnea. GASTROINTESTINAL: Denies abdominal pain, nausea, vomiting, diarrhea SKIN: Denies rash or itching. MUSCULOSKELETAL: Denies myalgia. NEUROLOGIC: Reports headache. All systems reviewed & are unremarkable except as noted in HPI and below PMFSH Past Medical History Medical History History of migraine GUANAKO (obstructive sleep apnea) Surgical History Surgical History History of colonoscopy History of laparoscopic appendectomy History of laparoscopy-assisted vaginal hysterectomy Family History Family History Other No pertinent family history Social History Social History Smoking status: Never smoker Second hand tobacco smoke exposure: No Alcohol intake: never Drinks per week: 0 Substance use: never Substance use type: does not use Spiritual care concerns: No Comments At time of signature, agree with nursing past medical, surgical, social and family history. There is no relevant family history pertinent to the presenting complaint Exam Narrative: GENERAL: Nontoxic-appearing and in no acute distress. HEAD: Normocephalic EYES: PERRLA, conjunctivae clear ENT: Nares clear, turbinates edematous and erythematous, sinus tenderness. Mucous membranes moist. TM pearly hyde with dull light reflex bilaterally; no tragal tenderness. Oropharynx not erythematous without lesions. Tonsils not enlarged and without exudate, no drooling, no hoarseness, no trismus, uvula midline. NECK: Supple. No lymphadenopathy CHEST: Clear to auscultation, breath sounds equal. No wheezing, rhonchi, rales, or stridor. No respiratory distress, speaks in full sentences. HEART: Regular rate and rhythm. No murmur heard. SKIN: Warm, dry, no rash. NEURO: Alert and oriented x3. PSYCH: Normal mood and affect Course Course Emerge
== END 2022-04-17 17:32 | disposition home or self-care (01) ==
PROVIDERS: Emergency Provider Nurse Practitioner
DX: J01.90 Acute sinusitis, unspecified (principal)
CPT/HCPCS: 99213; G0463